=== PATIENT | female | born 1970 | race Hispanic/Latino ===

== ENCOUNTER → 2018-03-22 08:51 | Outpatient (CLI) | payer OTHER, MEDICAID, SELFPAY ==
--- NOTE | 2018-03-22 | DI.CT.S_ITS ---
PROCEDURE: CT ABDOMEN PELVIS W CON INDICATIONS: 47 year-old female with right pelvic mass, with unsuccessful CT guided biopsy September 2017. TECHNIQUE: After the administration of oral and intravenous contrast, 5 mm thick sections acquired from the diaphragms to the symphysis. 5 mm thick coronal and sagittal reformats were performed. For radiation dose reduction, the following was used: automated exposure control, adjustment of mA and/or kV according to patient size. COMPARISON: [facility], CT, CT BIOPSY ABDOMEN OR RETROPERITONEAL, 10/07/2017, 8:41. [facility], CT, ABDOMEN/PELVIS WITH CONTRAST, 02/25/2017, 10:33. [facility], CT, CT ABD PELVIS W CON, 08/05/2015, 23:52. FINDINGS: Image quality: Excellent. ABDOMEN: Lung bases: Lung bases are clear. Heart size is normal. Solid organs: Liver is normal in size, with diffuse fatty infiltration. Gallbladder wall thickness is normal. Biliary system is non-dilated. Pancreas enhances normally. Spleen is normal in size and enhancement. No adrenal nodules. Kidneys are normal in size and enhancement, without hydronephrosis. Peritoneum and bowel: On axial image 69, right lower quadrant mesenteric enhancing soft tissue mass currently measures 3.3 x 2.8 x 3.4 cm (3.4 x 3.2 x 3.9 cm on February 25, 2017, and 3.9 x 3.7 x 4.6 cm on August 05, 2015). Stomach, small bowel, and colon loops are normal in caliber and wall thickness. There is sigmoid colon diverticulosis. The appendix appears normal. No free fluid or air. Nodes and vessels: No retroperitoneal or mesenteric adenopathy. Aorta and inferior vena cava are normal in caliber, with scattered aortoiliac atherosclerosis. Miscellaneous: No ventral hernias. PELVIS: Genitourinary: Bladder wall thickness is normal. Uterus and ovaries are normal in size. Miscellaneous: No inguinal hernias or adenopathy. Bones: No suspicious bony lesions. No vertebral body compression fractures. There is significant L4-L5 disc degeneration. IMPRESSION: 1. Indeterminate solid right lower quadrant mesenteric mass has steadily decreased in size since July 2015. As such, continued annual followup pelvic CT imaging may be a feasible management option if surgical resection is not desired. 2. Sigmoid colon diverticulosis. 3. Diffuse fatty infiltration of the liver. Dictated by: Titus Vealzco M.D. on 03/22/2018 at 11:25 Approved by: Titus Velazco M.D. on 03/22/2018 at 11:36
== END ==
PROVIDERS: Visit Provider Physician Assistant
DX: R92.8 Other abnormal and inconclusive findings on diagnostic imaging of breast (principal); K57.30 Diverticulosis of large intestine without perforation or abscess without bleeding; K76.0 Fatty (change of) liver, not elsewhere classified
CPT/HCPCS: 74177; Q9967

== ENCOUNTER → 2018-04-27 14:47 | Outpatient (CLI) | payer OTHER, MEDICAID, SELFPAY ==
[2018-04-27 15:53] LABS: Alanine Aminotransferase 141 IU/L (9-52); Albumin Globulin Ratio 1.2 (1.0-2.8); Alkaline Phosphatase 150 U/L (38-126); Aspartate Aminotransferase 166 IU/L (14-36); BUN Creatinine Ratio 11.7 (6-22); Bilirubin Total 1.5 mg/dL (0.2-1.3); Blood Urea Nitrogen 7 mg/dL (7-17); Calcium 10.5 mg/dL (8.4-10.2); Carbon Dioxide 33 mmol/L (22-32); Chloride 91 mmol/L (98-107); Estimated Glomerular Filt Rate > 60.0 mL/min (>60); Globulin 4.2 g/dL (1.7-4.1); Glucose 140 mg/dL (70-100); HEMOLYSIS < 15 (0-50); Potassium 3.3 mmol/L (3.4-5.1); Sodium 138 mmol/L (137-145); Total Protein 9.2 g/dL (6.3-8.2)
[2018-04-27 15:54] LABS: Add Manual Diff / Slide Review NO; Basophils Percent Auto 0.3 % (0-2); Eosinophils Percent Auto 0.1 % (2-4); Hematocrit 38.7 % (36-46); Hemoglobin 13.6 g/dL (12.0-16.0); Lymphocytes Percent Auto 19.2 % (25-40); Mean Corpuscular Hemoglobin 32.7 PG (26-34); Mean Corpuscular Volume 93.2 fL (80-100); Monocytes Percent Auto 9.3 % (3-14); Neutrophils Absolute Auto 4400 /uL (3000-5900); Neutrophils Percent Auto 71.1 % (50-75); Platelet Count 288 X10^3/uL (150-400); Red Blood Cell Count 4.15 X10^6/uL (4.0-5.2); Red Cell Distribution Width 13.5 % (11.6-14.8); White Blood Cell Count 6.2 X10^3/uL (4.5-11.0)
== END ==
PROVIDERS: PCP Physician Assistant; Visit Provider Surgery
DX: R11.10 Vomiting, unspecified (principal)
CPT/HCPCS: 36415; 80053; 85025

== ENCOUNTER 2018-04-28 11:20 | Day surgery (SDC) | payer OTHER, MEDICAID, SELFPAY ==
[2018-04-26 11:49] VITALS: BMI 31.1
[2018-04-28] VITALS (7 sets, daily range): BP systolic 130–141; BP diastolic 80–96; PULSE 90–105; RESP 14–20; TEMP 36.2–36.6; O2SAT 92–100; BMI 31.1
--- NOTE | 2018-04-28 | PATH_ITS ---
[facility] Accession Number: [id number] . 01 Material submitted: . ABDOMINAL WALL MASS . 02 Diagnosis: Mass From Abdominal Wall: Benign leiomyoma, negative for atypia (3.9 x 3.6 x 2.0 cm). Mass appears to be totally excised. MRV/04/30/2018 . 02 Electronically signed: . Germain Barnes MD, Pathologist NPI- [id number] . 01 Gross description: . Received in formalin, labeled abdominal wall mass, is a rahman-white solid firm mass (3.9 x 3.6 x 2.0 cm) partially covered in adipose tissue. The cut surface is white, whorled and homogeneous. The tissue is inked black. Claims Auditor serial sections submitted in cassettes A1-A3. ([id number]) /MRV . 02 Pathologist provided ICD-10: D21.4 . 02 CPT . 217921 Performed at: 01 [facility] [address], [place], [place] [id number] MD Wilfred Jones MD Phone: [phone] Performed at: 02 [facility] [address] [place], [place] [id number] MD Rivas Layton MD Phone: [phone]
[2018-04-28] MEDS: LACTATED RINGERS 1,000 ML 42 ML IV (15:31)
[2018-04-28] MEDS: CEFAZOLIN 2 GM/100 ML FROZ.PIGGY IV (15:40)
--- NOTE | 2018-04-28 16:02 | SUR.OPER ---
Supine on padded OR bed, head on pillow, left arm padded and tucked at side, right arm padded and secured on arm board, legs uncrossed, safety belt at thigh, tape over blanket over lower legs .
[2018-04-28] MEDS: LIDOCAINE 1% W/EPI INJ 20 ML INJ (16:13)
[2018-04-28] MEDS: BUPIVACAINE 0.5% (PF) VIAL 30 ML INJ (16:14)
[2018-04-28] MEDS: fentaNYL 100 MCG/2 ML INJ 50 MCG IV ×2 (17:05→17:20)
--- NOTE | 2018-05-12 12:41 | PM.OP.1 ---
Operative Date/Time/Diagnoses Date of procedure: 04/28/18 Time of procedure: 14:41 Pre-op diagnosis: Pelvic mass Post-op diagnosis: same Procedure & Clinicians Procedure: Diagnostic laparoscopy and removal of abdominal wall mass. Same procedure as scheduled: Yes Indications: Painful right lower quadrant pelvic mass present for many years and now growing and limiting mobility Surgeon: Bharti Frausto Invoicing Machine Operator: Jackson Yancey Click Yes if Unassisted: No Anesthesia Type: General Operative Notes Findings: Solid 4 x 4 cm mass within the substance of the oblique muscles of the right lower quadrant. The mass was entirely outside of the peritoneal cavity Closure Type: primary Specimen(s): other (Mass in formalin to pathology) Estimated Blood Loss (mL): 20 Procedure in detail: After obtaining informed consent, the patient brought to the operating room and placed in the supine position on the operating table. Following successful induction of general endotracheal anesthesia, appropriate padding of all bony prominences, and placement of appropriate monitors, the abdomen was prepped and draped in the standard surgical fashion. A time-out was held per [facility] protocol. We began by infiltrating a mixture of local anesthetic just inferior to the umbilicus. An incision was created here and carried down through the skin and subcutaneous tissue to reveal the fascia below. Two 0 Vicryl retention sutures were placed on either side of the midline and the abdomen was entered under direct vision using a 15 blade scalpel. A 10 mm blunt Covarrubias balloon trocar was placed in the abdominal cavity was insufflated to 15 mm of mercury pressure. A 2nd 5 mm trocar was placed in the right upper quadrant with the same technique. The patient was placed in Trendelenburg position with the left side rotated toward the floor. We visualized the entire pelvic region and noted a mass outside the peritoneal cavity that was visible on the right side. There is no similar mass or structure on the left. No other abnormalities were appreciated on either side in the pelvis. The mass was palpated externally and we could determine at this point that it was more accessible from an anterior approach. The camera was removed and the abdomen was desufflated. An incision was created directly over the mass in the right lower quadrant. This was carried down through skin and subcutaneous tissue. The mass itself was covered by oblique muscle. The oblique muscles were gently retracted superiorly and inferiorly to reveal the mass. The mass was then delivered into the field and a small neurovascular pedicle divided with cautery. It was 4 x 4 cm in greatest dimension and whitish and firm and calcified in appearance. The remaining defect was then irrigated with warm saline solution and aspirated free of all fluid. It was closed in 3 layers with Vicryl and Monocryl suture. Made a 2nd look into the abdominal cavity to be sure that the right lower quadrant wound was well approximated. The peritoneum was disrupted but the wound was well closed. No bleeding was noted. The trocars removed under direct vision and the abdomen desufflated. Trocar sites were closed in 2 layers with Vicryl and Monocryl suture. All sponge, needle, and instrument counts were correct at the conclusion of the case. The patient tolerated the procedure very well. She was allowed awaken from anesthesia without difficulty and taken to the postanesthesia care unit in good condition. Complications: none Condition: stable Disposition: PACU Plan for aftercare: 1. Discharge to home 2. Follow up with me in my office in 2 weeks
== END 2018-04-28 17:50 | disposition home or self-care (01) ==
PROVIDERS: PCP Physician Assistant; Visit Provider Surgery
PROC: (CPT 49320; principal; 2018-04-28 16:00)
DX: D21.4 Benign neoplasm of connective and other soft tissue of abdomen (principal); I10 Essential (primary) hypertension
CPT/HCPCS: 49320; 22901; 49329; 88305; J0330; J0690; J1100; J1170; J2405; J2704; J3010

== ENCOUNTER → 2018-09-08 14:30 | Outpatient (REF) | payer OTHER, MEDICAID, SELFPAY ==
[2018-09-08 14:36] LABS: Appearance Urine UA SL CLOUDY; Bilirubin Urine UA NEGATIVE (NEGATIVE); Color Urine UA YELLOW; Glucose Urine UA NEGATIVE (Normal); Ketones Urine UA NEGATIVE (NEGATIVE); Leukocyte Esterase Urine UA 2+ (NEGATIVE); Nitrite Urine UA NEGATIVE (Negative); Occult Blood Urine UA 1+ (Negative); Protein Urine UA NEGATIVE (Negative); Urobilinogen Urine UA 0.2 E.U./dL (0.2)
[2018-09-08 14:44] LABS: Bacteria Urine Many (>30); Culture Indicated Urine Specimen Cultured; RBC Urine 30-100/HPF (0-5/HPF); Squamous Epithelial Cell Urine 1-5 /HPF; WBC Urine 1-5/HPF (0-5/HPF)
== END ==
LOC: LAB 14:30
PROVIDERS: PCP Physician Assistant; Visit Provider Physician Assistant
DX: N39.0 Urinary tract infection, site not specified (principal)
CPT/HCPCS: 81001; 87077; 87086; 87186

== ENCOUNTER 2019-04-25 13:10 | Emergency (ER) | payer OTHER, MEDICAID, SELFPAY ==
[2019-04-25] VITALS (9 sets, daily range): BP systolic 100–126; BP diastolic 56–80; PULSE 115–121; RESP 18–24; TEMP 37–38.1; O2SAT 95–99
--- NOTE | 2019-04-25 13:38 | DI.CT.S_ITS ---
PROCEDURE: CT CHEST ABD PEL W CON INDICATIONS: trauma, fall, new jaundice, heavy etoh TECHNIQUE: After the administration of intravenous contrast, 5 mm thick sections acquired from the lung apices to the symphysis. 2.5 mm thick coronal and sagittal reformats were acquired. Additional 7 mm thick coronal maximum intensity projection (MIP) reformats acquired through the lungs. Optional 10-minute delayed imaging may be performed from the kidneys to the bladder. For radiation dose reduction, the following was used: automated exposure control, adjustment of mA and/or kV according to patient size. COMPARISON: [facility], CT, ABDOMEN/PELVIS WITH CONTRAST, 02/25/2017, 10:33. [facility], CT, CT ABDOMEN PELVIS W CON, 03/22/2018, 10:06. FINDINGS: Image quality: Excellent. CHEST: Lungs: No pulmonary contusions or lacerations. There is mild dependent atelectasis bilaterally. No pneumothorax or hemothorax. Central and peripheral airways appear patent and normal in caliber. Mediastinum: No mediastinal hematomas. Heart size is normal. No pericardial effusion. Thoracic aorta and pulmonary arteries demonstrate normal size and enhancement. No mediastinal or hilar adenopathy. Esophagus is normal in caliber. No hiatal hernia. Chest wall: No rib fractures. No subcutaneous emphysema. No axillary or supraclavicular adenopathy. In the ABDOMEN: Solid organs: The liver is markedly enlarged, increased in size compared to the prior study. There is heterogeneous hypoattenuation of the hepatic parenchyma with increased heterogeneity compared to the prior study. Within segment 4B of the inferior left hepatic lobe, there are 2 indistinct hypoattenuating lesions measuring approximately 2.2 x 1.5 cm and 4.5 x 3.8 cm along the gallbladder fossa. The gallbladder is partially distended with mild wall thickening and enhancement. There is a punctate calcified stone within the gallbladder lumen. Biliary system is non-dilated. Pancreas enhances normally, without transection. No pancreatic duct dilatation. Spleen is normal in size and enhancement, without definite lacerations. There is a small linear cleft along the posterior aspect of the spleen which appears similar to the prior study. No adrenal hematomas. Both kidneys enhance normally, without hydronephrosis or lacerations. Peritoneum and bowel: Small bowel loops demonstrate normal wall thickness and caliber. There are surgical sutures along the cecum likely from prior appendectomy. There is mild segmental wall thickening of the ascending colon as well as the sigmoid colon. The findings represent a nonspecific infectious or inflammatory colitis or portal colopathy. Colonic diverticulosis is demonstrated without acute diverticulitis. There is a small to moderate amount of free fluid in the abdomen or pelvis likely representing ascites. Nodes and vessels: No retroperitoneal or mesenteric adenopathy. Aorta and inferior vena cava are normal in size and enhancement. Miscellaneous: No ventral hernias. PELVIS: Genitourinary: Bladder wall thickness is normal. Miscellaneous: No inguinal hernias or adenopathy. Bones: Pelvic ring and hip joints appear intact. No vertebral compression fractures. IMPRESSION: 1. Interval enlargement of the liver with diffuse heterogeneous hypoattenuation. Given reported history of new jaundice, the findings may reflect an acute hepatitis. 2. New hypoattenuating lesions along the gallbladder fossa. Although this may represent focal fatty infiltration or a transient vascular perfusion anomaly, a hepatic mass cannot be excluded. Recommend further evaluation with a liver protocol MRI or CT when clinically feasible. 3. Small to moderate amount of ascites. 4. Partial distention of the gallbladder with mild wall thickening and enhancement and a small calcified gallstone. The findings are nonspecific in the context of liver disease, but if there is clinical suspicion for cholecystitis recommend further evaluation with ultrasound. 5. Mild segmental wall thickening in the ascending and sigmoid colon may reflect portal colopathy versus an infectious or inflammatory colitis. 6. Colonic diverticulosis without acute diverticulitis. Dictated by: Wilfred Robles M.D. on 04/25/2019 at 14:37 Approved by: Wilfred Robles M.D. on 04/25/2019 at 15:22
[2019-04-25 13:52] LABS: Hematocrit 24.3 % (36-46); INR 1.9 (0.9-1.3); Mean Corpuscular HGB Conc 32.9 % (30-36); Mean Corpuscular Hemoglobin 31.3 PG (26-34); Mean Corpuscular Volume 95.1 fL (80-100); Platelet Count 323 X10^3/uL (150-400); Prothrombin Time 22.5 SECONDS (10.1-12.7); Red Blood Cell Count 2.56 X10^6/uL (4.0-5.2); Red Cell Distribution Width 22.1 % (11.6-14.8); White Blood Cell Count 19.5 X10^3/uL (4.5-11.0)
[2019-04-25 13:54] LABS: Add Manual Diff / Slide Review YES
[2019-04-25 13:56] LABS: Acetaminophen < 10 ug/mL (10-30); Ethanol (ETOH) < 10 mg/dL
[2019-04-25 13:57] LABS: Alanine Aminotransferase 33 IU/L (9-52); Albumin Globulin Ratio 0.6 (1.0-2.8); Alkaline Phosphatase 547 U/L (38-126); Aspartate Aminotransferase 220 IU/L (14-36); Blood Urea Nitrogen 13 mg/dL (7-17); Calcium 7.9 mg/dL (8.4-10.2); Carbon Dioxide 25 mmol/L (22-32); Chloride 94 mmol/L (98-107); Estimated Glomerular Filt Rate > 60.0 mL/min (>60); Globulin 5.2 g/dL (1.7-4.1); Glucose 100 mg/dL (70-100); HEMOLYSIS < 15 (0-50); Magnesium 1.6 mg/dL (1.6-2.3); Potassium 3.3 mmol/L (3.4-5.1); Sodium 131 mmol/L (137-145); Total Protein 8.2 g/dL (6.3-8.2)
--- NOTE | 2019-04-25 13:58 | ED.FALL ---
HPI - Fall General Chief Complaint: Fall Stated Complaint: Fall, rib pain and abd pain Time Seen by Provider: 04/25/19 13:12 History of Present Illness HPI Narrative: 48-year-old female nonsmoker with extensive alcohol history including up to 1 pt daily for many years presents with multiple falls over the past week including generalized fatigue and weakness. She has had worsening jaundice for the past few months and states that her abdomen has become intensely swollen over the past few days. She does not carry any known diagnosis of cirrhosis or liver failure. She denies fever chills. She denies any sort of confusion. She denies the use of Tylenol or other pain medications. She denies any change in her bowel habits other than perhaps some mild constipation. She denies any head neck or back pain resulting from fall. MD complaint: fall Onset (ago): day(s) Fall from: standing Fall witnessed: no Place fall occurred: home Loss of consciousness: none Prolonged down time: no Symptoms prior to fall: none Context: tripped/slipped Associated symptoms (after fall): shortness of breath, abdominal pain and lightheaded Related Data Home Medications Medication Instructions Recorded Confirmed amlodipine [Norvasc] 5 mg PO DAILY #0 02/26/17 04/25/19 omeprazole 20 mg PO DAILY #0 02/26/17 04/25/19 hydrochlorothiazide 25 mg PO DAILY 04/12/18 04/25/19 lorazepam 0.5 mg PO DAILY PRN 04/25/19 04/25/19 potassium chloride 10 meq PO DAILY 04/25/19 04/25/19 Allergies Allergy/AdvReac Type Severity Reaction Status Date / Time acetaminophen [From Vicodin] AdvReac Mild itching Verified 05/11/18 11:38 codeine AdvReac Mild itching Verified 05/11/18 11:38 hydrocodone [From Vicodin] AdvReac Mild itching Verified 05/11/18 11:38 oxycodone [From Percocet] AdvReac Mild itching Verified 05/11/18 11:38 Review of Systems Review of Systems ROS Unobtainable: All systems reviewed & are unremarkable except as noted in HPI and below Constitutional Denies chills, Reports difficulty sleeping, Denies fever(s), Denies lethargy, Reports poor appetite and Reports weakness Eyes Denies change in vision, Denies eye discharge, Denies irritation and Denies loss of vision ENT Ears, Nose, Mouth, and Throat: Denies change in voice, Denies neck pain and Denies sore throat Cardiovascular Denies chest pain, Denies irregular heart rhythm, Denies lightheadedness, Denies palpitations, Denies dyspnea, Denies dyspnea on exertion and Denies orthopnea Respiratory Denies cough, Denies dyspnea, Denies dyspnea on exertion and Denies wheezing Gastrointestinal Gastrointestinal: Denies abdominal pain, Denies change in bowel habits, Denies diarrhea, Denies nausea and Denies vomiting Genitourinary Denies hematuria, Denies flank pain, Denies urinary incontinence and Denies urinary urgency Musculoskeletal Denies neck pain Integumentary/Breasts Denies pruritus, Denies erythema, Denies rash and Denies wounds Comments: jaundice Neurologic Denies confusion, Denies loss of vision and Reports weakness Psychiatric Denies anxiety, Denies confusion, Denies depression, Denies homicidal ideation and Denies suicidal ideation Endocrine Denies palpitations Hematologic/Lymphatic Denies easy bruising Allergic/Immunologic Denies wheezing Exam Narrative Exam Narrative: GENERAL: 48-year-old female is obviously quite ill, scleral icterus and jaundice which is apparently new per the patient HEAD: Atraumatic. Normocephalic. No temporal or scalp tenderness. EYES: Pupils equal round and reactive. Extraocular motions intact. Scleral icterus ENT: Nose without bleeding, purulent drainage or septal hematoma. Throat without erythema, tonsillar hypertrophy or exudate. Uvula midline. Airway patent. NECK: Trachea midline. No JVD or lymphadenopathy. Supple, nontender, no meningeal signs. CARDIOVASCULAR: Regular rate and rhythm without murmurs, gallops, or rubs. RESPIRATORY: Clear to auscultation. Breath sounds equal bilaterally. No wheezes, rales, or rhonchi. GASTROINTESTINAL: Large protuberant abdomen with fluid wave, not tense no warmth EXTREMITIES: No clubbing, cyanosis, or edema. No joint tenderness, effusion, or edema noted. BACK: Nontender without deformity or crepitance. No flank tenderness. NEURO: AOx3. SKIN: Jaundice Initial Vital Signs Initial Vital Signs: Vital Signs Pulse Rate 118 H 04/25/19 13:14 Blood Pressure 126/80 04/25/19 13:14 Pulse Oximetry 98 04/25/19 13:14 [facility] Medical History Anxiety (Acute) Diverticulosis (Acute) Epistaxis (Acute) Fatty liver (Acute) H/O wisdom tooth extraction (Acute) History of abnormal cervical Pap smear (Acute) Pelvic mass (Acute) RLQ abdominal pain (Acute) HTN (hypertension) (Chronic) Surgical History History of reduction mammoplasty (Acute) History of tubal ligation (Acute) H/O tubal ligation (Resolved) Family History Sister Hypertension Father Diabetes mellitus Grandfather Diabetes mellitus Grandmother Stroke Social History household members: significant other Smoking Status: Never smoker alcohol intake: current Family History Sister Hypertension Father Diabetes mellitus Grandfather Diabetes mellitus Grandmother Stroke Social History household members: significant other Smoking Status: Never smoker alcohol intake: current Course Orders Ordered: ED Orders 04/25/19 13:25 Acetaminophen Stat Complete Blood Count AUTO DIFF Stat Comprehensive Metabolic Panel Stat Ethanol (ETOH) Stat Magnesium Stat Prothrombin Time INR Stat 04/25/19 13:38 CT chest abd pel w con Stat 04/25/19 13:45 ABO RH Type Stat Ammonia (NH3) Stat Fresh Frozen Plasma Stat Lactate (Lactic Acid) Stat 04/25/19 14:00 Blood Culture Stat Hepatitis Acute Panel Stat 04/25/19 14:28 Albumin Body Fluid Stat Body Fluid Culture Stat Cell Count w Diff Body Fluid Stat Glucose Body Fluid Stat LDH Body Fluid Stat Total Protein Body Fluid Stat 04/25/19 16:05 Urinalysis and Microscopic Stat Discontinued Medications Hydromorphone HCl (Dilaudid) 0.5 mg IV NOW ONE Stop: 04/25/19 15:13 Last Admin: 04/25/19 15:46 Dose: 0.5 mg Hydromorphone HCl (Dilaudid) 0.5 mg IV NOW ONE Stop: 04/25/19 18:12 Last Admin: 04/25/19 18:13 Dose: 0.5 mg Ceftriaxone Sodium/Dextrose (Rocephin) 2 gm in 50 mls @ 100 mls/hr IV NOW ONE Stop: 04/25/19 15:11 Last Infusion: 04/25/19 15:54 Dose: 0 mls/hr Admin: 04/25/19 14:53 Dose: 100 mls/hr Consultations Consultation #1: discussed CT with General Surgery. Little concern over GB findings. Call to hospitalist. Cannot keep here given lack of GI Discussed paracentesis with radiology, not enough fluid on CT, cannot do with INR of 1.9. ABX ordered Call to [place]. No beds Call to [facility] hospitalist. Happy to accept Vital Signs - 8 hr 04/25/19 13:14 04/25/19 13:28 04/25/19 13:30 Temperature 98.6 F Pulse Rate 118 H 118 H 116 H Respiratory Rate 24 19 Blood Pressure 126/80 Blood Pressure [Left Arm] 126/80 113/78 Pulse Oximetry 98 98 99 04/25/19 14:00 04/25/19 15:33 04/25/19 15:59 Temperature 100.5 F H 100.0 F H Pulse Rate 115 H 120 H 121 H Respiratory Rate 19 22 22 Blood Pressure 103/56 L 113/72 Blood Pressure [Left Arm] 100/66 Pulse Oximetry 95 04/25/19 16:35 04/25/19 17:20 04/25/19 18:44 Temperature Pulse Rate 120 H 116 H 118 H Respiratory Rate 20 18 20 Blood Pressure Blood Pressure [Left Arm] 110/71 113/77 103/65 Pulse Oximetry 96 97 95 MDM - Fall Lab Data Result diagrams: 04/25/19 13:25 04/25/19 13:25 Lab Results 04/25/19 04/25/19 04/25/19 Range/Units 13:25 13:25 13:25 WBC 19.5 H (4.5-11.0) X10^3/uL RBC 2.56 L (4.0-5.2) X10^6/uL Hgb 8.0 L (12.0-16.0) g/dL Hct 24.3 L (36-46) % MCV 95.1 (80-100) fL MCH 31.3 (26-34) PG MCHC 32.9 (30-36) % RDW 22.1 H (11.6-14.8) % Plt Count 323 (150-400) X10^3/uL Neut % (Auto) Not Reportable Lymph % (Auto) Not Reportable [place] % (Auto) Not Reportable Eos % (Auto) Not Reportable Baso % (Auto) Not Reportable Lymph # (Auto) Not Reportable [place] # (Auto) Not Reportable Baso # (Auto) Not Reportable Total Counted 100 Seg Neutrophils % 78.0 H (38-70) % Band Neutrophils % 9.0 H (3-7) % Lymphocytes % (Manual) 8.0 L (25-45) % Monocytes % (Manual) 5.0 (2-11) % Neutrophils # (Manual) 30657 H (7741-1212) /uL Nucleated RBCs 1 H ( - 0) #/Diff RBC Morphology See below Polychromasia 2+ H Hypochromasia 2+ H Anisocytosis 2+ H Target Cells 2+ H PT 22.5 H (10.1-12.7) SECONDS INR 1.9 H (0.9-1.3) Sodium (137-145) mmol/L Potassium (3.4-5.1) mmol/L Chloride (98-107) mmol/L Carbon Dioxide (22-32) mmol/L BUN (7-17) mg/dL Creatinine (0.52-1.04) mg/dL Estimated GFR (>60) mL/min BUN/Creatinine Ratio (6-22) Glucose (70-100) mg/dL Lactate (0.7-2.1) mmol/L Calcium (8.4-10.2) mg/dL Magnesium (1.6-2.3) mg/dL Total Bilirubin (0.2-1.3) mg/dL AST (14-36) IU/L ALT (9-52) IU/L Alkaline Phosphatase (38-126) U/L Ammonia (9-30) umol/L Total Protein (6.3-8.2) g/dL Albumin (3.5-5.0) g/dL Globulin (1.7-4.1) g/dL Albumin/Globulin Ratio (1.0-2.8) Urine Color Urine Appearance Urine pH (4.5-8.0) Ur Specific [place] (1.000-1.035) Urine Protein (Negative) Urine Glucose (UA) (Negative) g/dL Urine Ketones (NEGATIVE) Urine Occult Blood (Negative) Urine Nitrate (Negative) Urine Bilirubin (NEGATIVE) Urine Urobilinogen (0.2) E.U./dL Ur Leukocyte Esterase (NEGATIVE) Urine RBC (0-5/HPF) Urine WBC (0-5/HPF) Ur Squamous Epith Cells (0-5/HPF) Urine Bacteria (None) Ur Culture Indicated? Acetaminophen < 10 L (10-30) ug/mL Ethyl Alcohol < 10 mg/dL Blood Type 04/25/19 04/25/19 04/25/19 Range/Units 13:25 13:45 13:45 WBC (4.5-11.0) X10^3/uL RBC (4.0-5.2) X10^6/uL Hgb (12.0-16.0) g/dL Hct (36-46) % MCV (80-100) fL MCH (26-34) PG MCHC (30-36) % RDW (11.6-14.8) % Plt Count (150-400) X10^3/uL Neut % (Auto) Lymph % (Auto) [place] % (Auto) Eos % (Auto) Baso % (Auto) Lymph # (Auto) [place] # (Auto) Baso # (Auto) Total Counted Seg Neutrophils % (38-70) % Band Neutrophils % (3-7) % Lymphocytes % (Manual) (25-45) % Monocytes % (Manual) (2-11) % Neutrophils # (Manual) (0445-2568) /uL Nucleated RBCs ( - 0) #/Diff RBC Morphology Polychromasia Hypochromasia Anisocytosis Target Cells PT (10.1-12.7) SECONDS INR (0.9-1.3) Sodium 131 L (137-145) mmol/L Potassium 3.3 L (3.4-5.1) mmol/L Chloride 94 L (98-107) mmol/L Carbon Dioxide 25 (22-32) mmol/L BUN 13 (7-17) mg/dL Creatinine 0.50 L (0.52-1.04) mg/dL Estimated GFR > 60.0 (>60) mL/min BUN/Creatinine Ratio 26.0 H (6-22) Glucose 100 (70-100) mg/dL Lactate 1.9 (0.7-2.1) mmol/L Calcium 7.9 L (8.4-10.2) mg/dL Magnesium 1.6 (1.6-2.3) mg/dL Total Bilirubin 11.0 H (0.2-1.3) mg/dL AST 220 H (14-36) IU/L ALT 33 (9-52) IU/L Alkaline Phosphatase 547 H (38-126) U/L Ammonia 26.0 (9-30) umol/L Total Protein 8.2 (6.3-8.2) g/dL Albumin 3.0 L (3.5-5.0) g/dL Globulin 5.2 H (1.7-4.1) g/dL Albumin/Globulin Ratio 0.6 L (1.0-2.8) Urine Color Urine Appearance Urine pH (4.5-8.0) Ur Specific [place] (1.000-1.035) Urine Protein (Negative) Urine Glucose (UA) (Negative) g/dL Urine Ketones (NEGATIVE) Urine Occult Blood (Negative) Urine Nitrate (Negative) Urine Bilirubin (NEGATIVE) Urine Urobilinogen (0.2) E.U./dL Ur Leukocyte Esterase (NEGATIVE) Urine RBC (0-5/HPF) Urine WBC (0-5/HPF) Ur Squamous Epith Cells (0-5/HPF) Urine Bacteria (None) Ur Culture Indicated? Acetaminophen (10-30) ug/mL Ethyl Alcohol mg/dL Blood Type 04/25/19 04/25/19 Range/Units 13:45 16:05 WBC (4.5-11.0) X10^3/uL RBC (4.0-5.2) X10^6/uL Hgb (12.0-16.0) g/dL Hct (36-46) % MCV (80-100) fL MCH (26-34) PG MCHC (30-36) % RDW (11.6-14.8) % Plt Count (150-400) X10^3/uL Neut % (Auto) Lymph % (Auto) [place] % (Auto) Eos % (Auto) Baso % (Auto) Lymph # (Auto) [place] # (Auto) Baso # (Auto) Total Counted Seg Neutrophils % (38-70) % Band Neutrophils % (3-7) % Lymphocytes % (Manual) (25-45) % Monocytes % (Manual) (2-11) % Neutrophils # (Manual) (2446-0083) /uL Nucleated RBCs ( - 0) #/Diff RBC Morphology Polychromasia Hypochromasia Anisocytosis Target Cells PT (10.1-12.7) SECONDS INR (0.9-1.3) Sodium (137-145) mmol/L Potassium (3.4-5.1) mmol/L Chloride (98-107) mmol/L Carbon Dioxide (22-32) mmol/L BUN (7-17) mg/dL Creatinine (0.52-1.04) mg/dL Estimated GFR (>60) mL/min BUN/Creatinine Ratio (6-22) Glucose (70-100) mg/dL Lactate (0.7-2.1) mmol/L Calcium (8.4-10.2) mg/dL Magnesium (1.6-2.3) mg/dL Total Bilirubin (0.2-1.3) mg/dL AST (14-36) IU/L ALT (9-52) IU/L Alkaline Phosphatase (38-126) U/L Ammonia (9-30) umol/L Total Protein (6.3-8.2) g/dL Albumin (3.5-5.0) g/dL Globulin (1.7-4.1) g/dL Albumin/Globulin Ratio (1.0-2.8) Urine Color [place] Urine Appearance Clear Urine pH 7.5 (4.5-8.0) Ur Specific [place] <=1.005 (1.000-1.035) Urine Protein 1+ H (Negative) Urine Glucose (UA) Trace H (Negative) g/dL Urine Ketones Trace H (NEGATIVE) Urine Occult Blood Negative (Negative) Urine Nitrate Negative (Negative) Urine Bilirubin 3+ H (NEGATIVE) Urine Urobilinogen 2.0 H (0.2) E.U./dL Ur Leukocyte Esterase Trace H (NEGATIVE) Urine RBC None seen (0-5/HPF) Urine WBC 5-10/hpf H (0-5/HPF) Ur Squamous Epith Cells 5-10 /hpf H (0-5/HPF) Urine Bacteria Many (>30) H (None) Ur Culture Indicated? Cult not indicated Acetaminophen (10-30) ug/mL Ethyl Alcohol mg/dL Blood Type O Positive Imaging Data CT scan - abdomen: Radiologist's impression: [address] [address] [address] Scan Report Signed Patient: Conchita Miguel#: [id number] : 1970Acct:[id number] Age/Sex: 48 / FDate of Service: 04/25/19 Loc: ED Accession Number: [id number] Procedure: CT chest abd pel w con Ordering Provider: Ravinder Nevarez D.O. PROCEDURE: CT CHEST ABD PEL W CON INDICATIONS: trauma, fall, new jaundice, heavy etoh TECHNIQUE: After the administration of intravenous contrast, 5 mm thick sections acquired from the lung apices to the symphysis. 2.5 mm thick coronal and sagittal reformats were acquired. Additional 7 mm thick coronal maximum intensity projection (MIP) reformats acquired through the lungs. Optional 10-minute delayed imaging may be performed from the kidneys to the bladder. For radiation dose reduction, the following was used: automated exposure control, adjustment of mA and/or kV according to patient size. COMPARISON: [facility], CT, ABDOMEN/PELVIS WITH CONTRAST, 02/25/2017, 10:33. [facility], CT, CT ABDOMEN PELVIS W CON, 03/22/2018, 10:06. FINDINGS: Image quality: Excellent. CHEST: Lungs: No pulmonary contusions or lacerations. There is mild dependent atelectasis bilaterally. No pneumothorax or hemothorax. Central and peripheral airways appear patent and normal in caliber. Mediastinum: No mediastinal hematomas. Heart size is normal. No pericardial effusion. Thoracic aorta and pulmonary arteries demonstrate normal size and enhancement. No mediastinal or hilar adenopathy. Esophagus is normal in caliber. No hiatal hernia. Chest wall: No rib fractures. No subcutaneous emphysema. No axillary or supraclavicular adenopathy. In the ABDOMEN: Solid organs: The liver is markedly enlarged, increased in size compared to the prior study. There is heterogeneous hypoattenuation of the hepatic parenchyma with increased heterogeneity compared to the prior study. Within segment 4B of the inferior left hepatic lobe, there are 2 indistinct hypoattenuating lesions measuring approximately 2.2 x 1.5 cm and 4.5 x 3.8 cm along the gallbladder fossa. The gallbladder is partially distended with mild wall thickening and enhancement. There is a punctate calcified stone within the gallbladder lumen. Biliary system is non-dilated. Pancreas enhances normally, without transection. No pancreatic duct dilatation. Spleen is normal in size and enhancement, without definite lacerations. There is a small linear cleft along the posterior aspect of the spleen which appears similar to the prior study. No adrenal hematomas. Both kidneys enhance normally, without hydronephrosis or lacerations. Peritoneum and bowel: Small bowel loops demonstrate normal wall thickness and caliber. There are surgical sutures along the cecum likely from prior appendectomy. There is mild segmental wall thickening of the ascending colon as well as the sigmoid colon. The findings represent a nonspecific infectious or inflammatory colitis or portal colopathy. Colonic diverticulosis is demonstrated without acute diverticulitis. There is a small to moderate amount of free fluid in the abdomen or pelvis likely representing ascites. Nodes and vessels: No retroperitoneal or mesenteric adenopathy. Aorta and inferior vena cava are normal in size and enhancement. Miscellaneous: No ventral hernias. PELVIS: Genitourinary: Bladder wall thickness is normal. Miscellaneous: No inguinal hernias or adenopathy. Bones: Pelvic ring and hip joints appear intact. No vertebral compression fractures. IMPRESSION: 1. Interval enlargement of the liver with diffuse heterogeneous hypoattenuation. Given reported history of new jaundice, the findings may reflect an acute hepatitis. 2. New hypoattenuating lesions along the gallbladder fossa. Although this may represent focal fatty infiltration or a transient vascular perfusion anomaly, a hepatic mass cannot be excluded. Recommend further evaluation with a liver protocol MRI or CT when clinically feasible. 3. Small to moderate amount of ascites. 4. Partial distention of the gallbladder with mild wall thickening and enhancement and a small calcified gallstone. The findings are nonspecific in the context of liver disease, but if there is clinical suspicion for cholecystitis recommend further evaluation with ultrasound. 5. Mild segmental wall thickening in the ascending and sigmoid colon may reflect portal colopathy versus an infectious or inflammatory colitis. 6. Colonic diverticulosis without acute diverticulitis. Dictated by: Wilfred Robles M.D. on 04/25/2019 at 14:37 Approved by: Wilfred Robles M.D. on 04/25/2019 at 15:22 Critical Care Time Critical Care Time: Yes Total Critical Care Time: 30 Attestation: The high probability of a clinically significant, sudden or life threatening deterioration of the [CV] system(s) required my full and direct attention, intervention and personal management. The aggregate critical care time was [35] minutes. This time is in addition to time spent performing reported procedures but includes the following: [x] Data Review and interpretation [x] Patient assessment and monitoring of vital signs [x] Documentation [x] Medication orders and management Discharge Plan Departure Patient Disposition: [facility] Clinical Impression: Acute hepatitis, SBP (spontaneous bacterial peritonitis) Prescriptions: No Action amlodipine [Norvasc] 5 MG tablet 5 mg PO DAILY Qty: 0 RF: 0 omeprazole 20 MG capsule,delayed release(DR/EC) 20 mg PO DAILY Qty: 0 RF: 0 hydrochlorothiazide 25 mg PO DAILY RF: 0 lorazepam 0.5 mg tablet 0.5 mg PO DAILY PRN (Reason: Anxiety) RF: 0 potassium chloride 10 mEq tablet extended release 10 meq PO DAILY RF: 0 Referrals: Rozina Murphy PA-C [Primary Care Provider] -
[2019-04-25 14:08] LABS: Neutrophils Absolute Manual 16965 /uL (3000-5900); Nucleated Red Blood Cells 1 #/Diff; Total Cells Counted 100
[2019-04-25 14:10] LABS: Anisocytosis 2+; Hypochromasia 2+; Polychromasia 2+; Target Cells 2+
[2019-04-25 14:11] LABS: Lactate (Lactic Acid) 1.9 mmol/L (0.7-2.1)
--- NOTE | 2019-04-25 14:42 | ED_ITS ---
HPI - Fall General Chief Complaint: Fall Stated Complaint: Fall, rib pain and abd pain Time Seen by Provider: 04/25/19 13:12 History of Present Illness HPI Narrative: 48-year-old female nonsmoker with extensive alcohol history including up to 1 pt daily for many years presents with multiple falls over the past week including generalized fatigue and weakness. She has had worsening jaundice for the past few months and states that her abdomen has become intensely swollen over the past few days. She does not carry any known diagnosis of cirrhosis or liver failure. She denies fever chills. She denies any sort of confusion. She denies the use of Tylenol or other pain medications. She denies any change in her bowel habits other than perhaps some mild constipation. She denies any head neck or back pain resulting from fall. MD complaint: fall Onset (ago): day(s) Fall from: standing Fall witnessed: no Place fall occurred: home Loss of consciousness: none Prolonged down time: no Symptoms prior to fall: none Context: tripped/slipped Associated symptoms (after fall): shortness of breath, abdominal pain and lightheaded Related Data Home Medications Medication Instructions Recorded Confirmed amlodipine [Norvasc] 5 mg PO DAILY #0 02/26/17 04/25/19 omeprazole 20 mg PO DAILY #0 02/26/17 04/25/19 hydrochlorothiazide 25 mg PO DAILY 04/12/18 04/25/19 lorazepam 0.5 mg PO DAILY PRN 04/25/19 04/25/19 potassium chloride 10 meq PO DAILY 04/25/19 04/25/19 Allergies Allergy/AdvReac Type Severity Reaction Status Date / Time acetaminophen [From Vicodin] AdvReac Mild itching Verified 05/11/18 11:38 codeine AdvReac Mild itching Verified 05/11/18 11:38 hydrocodone [From Vicodin] AdvReac Mild itching Verified 05/11/18 11:38 oxycodone [From Percocet] AdvReac Mild itching Verified 05/11/18 11:38 Review of Systems Review of Systems ROS Unobtainable: All systems reviewed & are unremarkable except as noted in HPI and below Constitutional Denies chills, Reports difficulty sleeping, Denies fever(s), Denies lethargy, Reports poor appetite and Reports weakness Eyes Denies change in vision, Denies eye discharge, Denies irritation and Denies loss of vision ENT Ears, Nose, Mouth, and Throat: Denies change in voice, Denies neck pain and Denies sore throat Cardiovascular Denies chest pain, Denies irregular heart rhythm, Denies lightheadedness, Denies palpitations, Denies dyspnea, Denies dyspnea on exertion and Denies orthopnea Respiratory Denies cough, Denies dyspnea, Denies dyspnea on exertion and Denies wheezing Gastrointestinal Gastrointestinal: Denies abdominal pain, Denies change in bowel habits, Denies diarrhea, Denies nausea and Denies vomiting Genitourinary Denies hematuria, Denies flank pain, Denies urinary incontinence and Denies urinary urgency Musculoskeletal Denies neck pain Integumentary/Breasts Denies pruritus, Denies erythema, Denies rash and Denies wounds Comments: jaundice Neurologic Denies confusion, Denies loss of vision and Reports weakness Psychiatric Denies anxiety, Denies confusion, Denies depression, Denies homicidal ideation and Denies suicidal ideation Endocrine Denies palpitations Hematologic/Lymphatic Denies easy bruising Allergic/Immunologic Denies wheezing Exam Narrative Exam Narrative: GENERAL: 48-year-old female is obviously quite ill, scleral icterus and jaundice which is apparently new per the patient HEAD: Atraumatic. Normocephalic. No temporal or scalp tenderness. EYES: Pupils equal round and reactive. Extraocular motions intact. Scleral icterus ENT: Nose without bleeding, purulent drainage or septal hematoma. Throat without erythema, tonsillar hypertrophy or exudate. Uvula midline. Airway patent. NECK: Trachea midline. No JVD or lymphadenopathy. Supple, nontender, no meninge al signs. CARDIOVASCULAR: Regular rate and rhythm without murmurs, gallops, or rubs. RESPIRATORY: Clear to auscultation. Breath sounds equal bilaterally. No wheezes, rales, or rhonchi. GASTROINTESTINAL: Large protuberant abdomen with fluid wave, not tense no warmth EXTREMITIES: No clubbing, cyanosis, or edema. No joint tenderness, effusion, or edema noted. BACK: Nontender without deformity or crepitance. No flank tenderness. NEURO: AOx3. SKIN: Jaundice Initial Vital Signs Initial Vital Signs: Vital Signs Pulse Rate 118 H 04/25/19 13:14 Blood Pressure 126/80 04/25/19 13:14 Pulse Oximetry 98 04/25/19 13:14 PFSH Medical History Anxiety (Acute) Diverticulosis (Acute) Epistaxis (Acute) Fatty liver (Acute) H/O wisdom tooth extraction (Acute) History of abnormal cervical Pap smear (Acute) Pelvic mass (Acute) RLQ abdominal pain (Acute) HTN (hypertension) (Chronic) Surgical History History of reduction mammoplasty (Acute) History of tubal ligation (Acute) H/O tubal ligation (Resolved) Family History Sister Hypertension Father Diabetes mellitus Grandfather Diabetes mellitus Grandmother Stroke Social History household members: significant other Smoking Status: Never smoker alcohol intake: current Family History Sister Hypertension Father Diabetes mellitus Grandfather Diabetes mellitus Grandmother Stroke Social History household members: significant other Smoking Status: Never smoker alcohol intake: current Course Orders Ordered: ED Orders 04/25/19 13:25 Acetaminophen Stat Complete Blood Count AUTO DIFF Stat Comprehensive Metabolic Panel Stat Ethanol (ETOH) Stat Magnesium Stat Prothrombin Time INR Stat 04/25/19 13:38 CT chest abd pel w con Stat 04/25/19 13:45 ABO RH Type Stat Ammonia (NH3) Stat Fresh Frozen Plasma Stat Lactate (Lactic Acid) Stat 04/25/19 14:00 Blood Culture Stat Hepatitis Acute Panel Stat 04/25/19 14:28 Albumin Body Fluid Stat Body Fluid Culture Stat Cell Count w Diff Body Fluid Stat Glucose Body Fluid Stat LDH Body Fluid Stat Total Protein Body Fluid Stat 04/25/19 16:05 Urinalysis and Microscopic Stat Discontinued Medications Hydromorphone HCl (Dilaudid) 0.5 mg IV NOW ONE Stop: 04/25/19 15:13 Last Admin: 04/25/19 15:46 Dose: 0.5 mg Hydromorphone HCl (Dilaudid) 0.5 mg IV NOW ONE Stop: 04/25/19 18:12 Last Admin: 04/25/19 18:13 Dose: 0.5 mg Ceftriaxone Sodium/Dextrose (Rocephin) 2 gm in 50 mls @ 100 mls/hr IV NOW ONE Stop: 04/25/19 15:11 Last Infusion: 04/25/19 15:54 Dose: 0 mls/hr Admin: 04/25/19 14:53 Dose: 100 mls/hr Consultations Consultation #1: discussed CT with General Surgery. Little concern over GB findings. Call to hospitalist. Cannot keep here given lack of GI Discussed paracentesis with radiology, not enough fluid on CT, cannot do with INR of 1.9. ABX ordered Call to [facility]. No beds Call to [facility] hospitalist. Happy to accept Vital Signs - 8 hr 04/25/19 13:14 04/25/19 13:28 04/25/19 13:30 Temperature 98.6 F Pulse Rate 118 H 118 H 116 H Respiratory Rate 24 19 Blood Pressure 126/80 Blood Pressure [Left Arm] 126/80 113/78 Pulse Oximetry 98 98 99 04/25/19 14:00 04/25/19 15:33 04/25/19 15:59 Temperature 100.5 F H 100.0 F H Pulse Rate 115 H 120 H 121 H Respiratory Rate 19 22 22 Blood Pressure 103/56 L 113/72 Blood Pressure [Left Arm] 100/66 Pulse Oximetry 95 04/25/19 16:35 04/25/19 17:20 04/25/19 18:44 Temperature Pulse Rate 120 H 116 H 118 H Respiratory Rate 20 18 20 Blood Pressure Blood Pressure [Left Arm] 110/71 113/77 103/65 Pulse Oximetry 96 97 95 MDM - Fall Lab Data Result diagrams: 04/25/19 13:25 04/25/19 13:25 Lab Results 04/25/19 04/25/19 04/25/19 Range/Units 13:25 13:25 13:25 WBC 19.5 H (4.5-11.0) X10^3/uL RBC 2.56 L (4.0-5.2) X10^6/uL Hgb 8.0 L (12.0-16.0) g/dL Hct 24.3 L (36-46) % MCV 95.1 (80-100) fL MCH 31.3 (26-34) PG MCHC 32.9 (30-36) % RDW 22.1 H (11.6-14.8) % Plt Count 323 (150-400) X10^3/uL Neut % (Auto) Not Reportable Lymph % (Auto) Not Reportable [place] % (Auto) Not Reportable Eos % (Auto) Not Reportable Baso % (Auto) Not Reportable Lymph # (Auto) Not Reportable [place] # (Auto) Not Reportable Baso # (Auto) Not Reportable Total Counted 100 Seg Neutrophils % 78.0 H (38-70) % Band Neutrophils % 9.0 H (3-7) % Lymphocytes % (Manual) 8.0 L (25-45) % Monocytes % (Manual) 5.0 (2-11) % Neutrophils # (Manual) 51598 H (8035-2971) /uL Nucleated RBCs 1 H ( - 0) #/Diff RBC Morphology See below Polychromasia 2+ H Hypochromasia 2+ H Anisocytosis 2+ H Target Cells 2+ H PT 22.5 H (10.1-12.7) SECONDS INR 1.9 H (0.9-1.3) Sodium (137-145) mmol/L Potassium (3.4-5.1) mmol/L Chloride (98-107) mmol/L Carbon Dioxide (22-32) mmol/L BUN (7-17) mg/dL Creatinine (0.52-1.04) mg/dL Estimated GFR (>60) mL/min BUN/Creatinine Ratio (6-22) Glucose (70-100) mg/dL Lactate (0.7-2.1) mmol/L Calcium (8.4-10.2) mg/dL Magnesium (1.6-2.3) mg/dL Total Bilirubin (0.2-1.3) mg/dL AST (14-36) IU/L ALT (9-52) IU/L Alkaline Phosphatase (38-126) U/L Ammonia (9-30) umol/L Total Protein (6.3-8.2) g/dL Albumin (3.5-5.0) g/dL Globulin (1.7-4.1) g/dL Albumin/Globulin Ratio (1.0-2.8) Urine Color Urine Appearance Urine pH (4.5-8.0) Ur Specific [place] (1.000-1.035) Urine Protein (Negative) Urine Glucose (UA) (Negative) g/dL Urine Ketones (NEGATIVE) Urine Occult Blood (Negative) Urine Nitrate (Negative) Urine Bilirubin (NEGATIVE) Urine Urobilinogen (0.2) E.U./dL Ur Leukocyte Esterase (NEGATIVE) Urine RBC (0-5/HPF) Urine WBC (0-5/HPF) Ur Squamous Epith Cells (0-5/HPF) Urine Bacteria (None) Ur Culture Indicated? Acetaminophen < 10 L (10-30) ug/mL Ethyl Alcohol < 10 mg/dL Blood Type 04/25/19 04/25/19 04/25/19 Range/Units 13:25 13:45 13:45 WBC (4.5-11.0) X10^3/uL RBC (4.0-5.2) X10^6/uL Hgb (12.0-16.0) g/dL Hct (36-46) % MCV (80-100) fL MCH (26-34) PG MCHC (30-36) % RDW (11.6-14.8) % Plt Count (150-400) X10^3/uL Neut % (Auto) Lymph % (Auto) [place] % (Auto) Eos % (Auto) Baso % (Auto) Lymph # (Auto) [place] # (Auto) Baso # (Auto) Total Counted Seg Neutrophils % (38-70) % Band Neutrophils % (3-7) % Lymphocytes % (Manual) (25-45) % Monocytes % (Manual) (2-11) % Neutrophils # (Manual) (4611-7131) /uL Nucleated RBCs ( - 0) #/Diff RBC Morphology Polychromasia Hypochromasia Anisocytosis Target Cells PT (10.1-12.7) SECONDS INR (0.9-1.3) Sodium 131 L (137-145) mmol/L Potassium 3.3 L (3.4-5.1) mmol/L Chloride 94 L (98-107) mmol/L Carbon Dioxide 25 (22-32) mmol/L BUN 13 (7-17) mg/dL Creatinine 0.50 L (0.52-1.04) mg/dL Estimated GFR > 60.0 (>60) mL/min BUN/Creatinine Ratio 26.0 H (6-22) Glucose 100 (70-100) mg/dL Lactate 1.9 (0.7-2.1) mmol/L Calcium 7.9 L (8.4-10.2) mg/dL Magnesium 1.6 (1.6-2.3) mg/dL Total Bilirubin 11.0 H (0.2-1.3) mg/dL AST 220 H (14-36) IU/L ALT 33 (9-52) IU/L Alkaline Phosphatase 547 H (38-126) U/L Ammonia 26.0 (9-30) umol/L Total Protein 8.2 (6.3-8.2) g/dL Albumin 3.0 L (3.5-5.0) g/dL Globulin 5.2 H (1.7-4.1) g/dL Albumin/Globulin Ratio 0.6 L (1.0-2.8) Urine Color Urine Appearance Urine pH (4.5-8.0) Ur Specific [place] (1.000-1.035) Urine Protein (Negative) Urine Glucose (UA) (Negative) g/dL Urine Ketones (NEGATIVE) Urine Occult Blood (Negative) Urine Nitrate (Negative) Urine Bilirubin (NEGATIVE) Urine Urobilinogen (0.2) E.U./dL Ur Leukocyte Esterase (NEGATIVE) Urine RBC (0-5/HPF) Urine WBC (0-5/HPF) Ur Squamous Epith Cells (0-5/HPF) Urine Bacteria (None) Ur Culture Indicated? Acetaminophen (10-30) ug/mL Ethyl Alcohol mg/dL Blood Type 04/25/19 04/25/19 Range/Units 13:45 16:05 WBC (4.5-11.0) X10^3/uL RBC (4.0-5.2) X10^6/uL Hgb (12.0-16.0) g/dL Hct (36-46) % MCV (80-100) fL MCH (26-34) PG MCHC (30-36) % RDW (11.6-14.8) % Plt Count (150-400) X10^3/uL Neut % (Auto) Lymph % (Auto) [place] % (Auto) Eos % (Auto) Baso % (Auto) Lymph # (Auto) [place] # (Auto) Baso # (Auto) Total Counted Seg Neutrophils % (38-70) % Band Neutrophils % (3-7) % Lymphocytes % (Manual) (25-45) % Monocytes % (Manual) (2-11) % Neutrophils # (Manual) (4232-0961) /uL Nucleated RBCs ( - 0) #/Diff RBC Morphology Polychromasia Hypochromasia Anisocytosis Target Cells PT (10.1-12.7) SECONDS INR (0.9-1.3) Sodium (137-145) mmol/L Potassium (3.4-5.1) mmol/L Chloride (98-107) mmol/L Carbon Dioxide (22-32) mmol/L BUN (7-17) mg/dL Creatinine (0.52-1.04) mg/dL Estimated GFR (>60) mL/min BUN/Creatinine Ratio (6-22) Glucose (70-100) mg/dL Lactate (0.7-2.1) mmol/L Calcium (8.4-10.2) mg/dL Magnesium (1.6-2.3) mg/dL Total Bilirubin (0.2-1.3) mg/dL AST (14-36) IU/L ALT (9-52) IU/L Alkaline Phosphatase (38-126) U/L Ammonia (9-30) umol/L Total Protein (6.3-8.2) g/dL Albumin (3.5-5.0) g/dL Globulin (1.7-4.1) g/dL Albumin/Globulin Ratio (1.0-2.8) Urine Color [place] Urine Appearance Clear Urine pH 7.5 (4.5-8.0) Ur Specific [place] <=1.005 (1.000-1.035) Urine Protein 1+ H (Negative) Urine Glucose (UA) Trace H (Negative) g/dL Urine Ketones Trace H (NEGATIVE) Urine Occult Blood Negative (Negative) Urine Nitrate Negative (Negative) Urine Bilirubin 3+ H (NEGATIVE) Urine Urobilinogen 2.0 H (0.2) E.U./dL Ur Leukocyte Esterase Trace H (NEGATIVE) Urine RBC None seen (0-5/HPF) Urine WBC 5-10/hpf H (0-5/HPF) Ur Squamous Epith Cells 5-10 /hpf H (0-5/HPF) Urine Bacteria Many (>30) H (None) Ur Culture Indicated? Cult not indicated Acetaminophen (10-30) ug/mL Ethyl Alcohol mg/dL Blood Type O Positive Imaging Data CT scan - abdomen: Radiologist's impression: [address] [address] [address] Scan Report Signed Patient: Conchita Miguel#: [id number] : 1970Acct:[id number] Age/Sex: 48 / FDate of Service: 04/25/19 Loc: ED Accession Number: [id number] Procedure: CT chest abd pel w con Ordering Provider: Ravinder Nevarez D.O. PROCEDURE: CT CHEST ABD PEL W CON INDICATIONS: trauma, fall, new jaundice, heavy etoh TECHNIQUE: After the administration of intravenous contrast, 5 mm thick sections acquired from the lung apices to the symphysis. 2.5 mm thick coronal and sagittal reformats were acquired. Additional 7 mm thick coronal maximum intensity projection (MIP) reformats acquired through the lungs. Optional 10-minute delayed imaging may be performed from the kidneys to the bladder. For radiation dose reduction, the following was used: automated exposure control, adjustment of mA and/or kV according to patient size. COMPARISON: [facility], CT, ABDOMEN/PELVIS WITH CONTRAST, 02/25/2017, 10:33. [facility], CT, CT ABDOMEN PELVIS W CON, 03/22/2018, 10:06. FINDINGS: Image quality: Excellent. CHEST: Lungs: No pulmonary contusions or lacerations. There is mild dependent atelectasis bilaterally. No pneumothorax or hemothorax. Central and peripheral airways appear patent and normal in caliber. Mediastinum: No mediastinal hematomas. Heart size is normal. No pericardial effusion. Thoracic aorta and pulmonary arteries demonstrate normal size and enhancement. No mediastinal or hilar adenopathy. Esophagus is normal in caliber. No hiatal h ernia. Chest wall: No rib fractures. No subcutaneous emphysema. No axillary or supraclavicular adenopathy. In the ABDOMEN: Solid organs: The liver is markedly enlarged, increased in size compared to the prior study. There is heterogeneous hypoattenuation of the hepatic parenchyma with increased heterogeneity compared to the prior study. Within segment 4B of the inferior left hepatic lobe, there are 2 indistinct hypoattenuating lesions measuring approximately 2.2 x 1.5 cm and 4.5 x 3.8 cm along the gallbladder fossa. The gallbladder is partially distended with mild wall thickening and enhancement. There is a punctate calcified stone within the gallbladder lumen. Biliary system is non-dilated. Pancreas enhances normally, without transection. No pancreatic duct dilatation. Spleen is normal in size and enhancement, without definite lacerations. There is a small linear cleft along the posterior aspect of the spleen which appears similar to the prior study. No adrenal hematomas. Both kidneys enhance normally, without hydronephrosis or lacerations. Peritoneum and bowel: Small bowel loops demonstrate normal wall thickness and caliber. There are surgical sutures along the cecum likely from prior appendectomy. There is mild segmental wall thickening of the ascending colon as well as the sigmoid colon. The findings represent a nonspecific infectious or inflammatory colitis or portal colopathy. Colonic diverticulosis is demonstrated without acute diverticulitis. There is a small to moderate amount of free fluid in the abdomen or pelvis likely representing ascites. Nodes and vessels: No retroperitoneal or mesenteric adenopathy. Aorta and inferior vena cava are normal in size and enhancement. Miscellaneous: No ventral hernias. PELVIS: Genitourinary: Bladder wall thickness is normal. Miscellaneous: No inguinal hernias or adenopathy. Bones: Pelvic ring and hip joints appear intact. No vertebral compression fractures. IMPRESSION: 1. Interval enlargement of the liver with diffuse heterogeneous hypoattenuation. Given reported history of new jaundice, the findings may reflect an acute hepatitis. 2. New hypoattenuating lesions along the gallbladder fossa. Although this may represent focal fatty infiltration or a transient vascular perfusion anomaly, a hepatic mass cannot be excluded. Recommend further evaluation with a liver protocol MRI or CT when clinically feasible. 3. Small to moderate amount of ascites. 4. Partial distention of the gallbladder with mild wall thickening and enhancement and a small calcified gallstone. The findings are nonspecific in the context of liver disease, but if there is clinical suspicion for cholecystitis recommend further evaluatio n with ultrasound. 5. Mild segmental wall thickening in the ascending and sigmoid colon may refl ect portal colopathy versus an infectious or inflammatory colitis. 6. Colonic diverticulosis without acute diverticulitis. Dictated by: Wilfred Robles M.D. on 04/25/2019 at 14:37 Approved by: Wilfred Robles M.D. on 04/25/2019 at 15:22 Critical Care Time Critical Care Time: Yes Total Critical Care Time: 30 Attestation: The high probability of a clinically significant, sudden or life threatening deterioration of the [CV] system(s) required my full and direct attention, intervention and personal management. The aggregate critical care time was [35] minutes. This time is in addition to time spent performing reported procedures but includes the following: [x] Data Review and interpretation [x] Patient assessment and monitoring of vital signs [x] Documentation [x] Medication orders and management Discharge Plan Departure [facility] Clinical Impression: Acute hepatitis, SBP (spontaneous bacterial peritonitis) Prescriptions: No Action amlodipine [Norvasc] 5 MG tablet 5 mg PO DAILY Qty: 0 RF: 0 omeprazole 20 MG capsule,delayed release(DR/EC) 20 mg PO DAILY Qty: 0 RF: 0 hydrochlorothiazide 25 mg PO DAILY RF: 0 lorazepam 0.5 mg tablet 0.5 mg PO DAILY PRN (Reason: Anxiety) RF: 0 potassium chloride 10 mEq tablet extended release 10 meq PO DAILY RF: 0 Referrals: Rozina Murphy PA-C [Primary Care Provider] -
[2019-04-25] MEDS: CEFTRIAXONE 2 GM/50 ML FROZ.PIGGY IV (14:53)
[2019-04-25] MEDS: HYDROMORPHONE 1 MG INJ 0.5 MG IV ×2 (15:46→18:13)
--- NOTE | 2019-04-25 15:48 | TAR.TRANSNT ---
override for FFP required related to what is explained to me as a known issue with the coding of ffp units frozen vs. thawed. unsurprisingly, this unresolved charting issue led to a slight delay in the administration of the ffp.
[2019-04-25 16:41] LABS: RBC Urine None Seen (0-5/HPF)
[2019-04-25 16:50] LABS: Appearance Urine UA CLEAR; Bilirubin Urine UA 3+ (NEGATIVE); Color Urine UA ORANGE; Glucose Urine UA TRACE g/dL (Negative); Ketones Urine UA TRACE (NEGATIVE); Leukocyte Esterase Urine UA TRACE (NEGATIVE); Nitrite Urine UA NEGATIVE (Negative); Occult Blood Urine UA NEGATIVE (Negative); Protein Urine UA 1+ (Negative); Specific Gravity Urine UA <=1.005 (1.000-1.035); pH Urine UA 7.5 (4.5-8.0)
[2019-04-25 17:23] LABS: Squamous Epithelial Cell Urine 5-10 /HPF (0-5/HPF)
[2019-04-25 17:24] LABS: Bacteria Urine Many (>30); Culture Indicated Urine Cult Not Indicated; WBC Urine 5-10/HPF (0-5/HPF)
[2019-04-27 16:30] LABS: Hepatitis A Antibody IgM NONREACTIVE (NONREACTIVE); Hepatitis Acute Panel Interp 0.06; Hepatitis B Core Antibody IgM NONREACTIVE (NONREACTIVE); Hepatitis B Surface Antigen NONREACTIVE (NONREACTIVE); Hepatitis C Antibody NONREACTIVE
== END 2019-04-25 16:50 | disposition short-term general hospital (02) ==
PROVIDERS: Emergency Provider Emergency Medicine; PCP Student in an Organized Health Care Education/Training Program
DX: B17.9 Acute viral hepatitis, unspecified (principal); K65.2 Spontaneous bacterial peritonitis; Z91.81 History of falling
CPT/HCPCS: 36430; 36591; 71260; 74177; 80053; 80074; 80320; 80329; 81001; 82140; 83605; 83735; 85025; 85610; 86900; 86901; 86927; 87040; 96365; 96375; 99284; P9016; G0480; J0696; J1170; Q9967

== ENCOUNTER → 2020-08-17 17:15 | Outpatient (CLI) | payer OTHER, MEDICAID, SELFPAY ==
--- NOTE | 2020-08-17 | DI.MG.S_ITS ---
BILATERAL DIGITAL SCREENING MAMMOGRAM 3D/2D WITH CAD: 08/17/2020 CLINICAL: Routine screening. Family history of breast cancer. Comparison is made to exam dated: 06/23/2011 mammogram - [facility]. The tissue of both breasts is heterogeneously dense. This may lower the sensitivity of mammography. Current study was also evaluated with a Computer Aided Detection (CAD) system. There are likely cysts in the left breast in the upper outer quadrant that are not significantly changed. There is a 1.1 cm oval equal density asymmetry in the left breast anterior depth medial region seen on the craniocaudal view only. This is more prominent and increased in size. No other significant masses, calcifications, or other findings are seen in either breast. IMPRESSION: INCOMPLETE: NEEDS ADDITIONAL IMAGING EVALUATION The 1.1 cm oval equal density asymmetry in the left breast is indeterminate. An ultrasound is recommended for further evaluation and is scheduled to immediately follow this study. This exam was interpreted at Station ID: [id number]. NOTE: For mammograms, a report in lay terms will be sent to the patient. Approximately 15% of breast malignancies will not be visualized mammographically. In the management of a palpable breast mass, a negative mammogram must not discourage biopsy of a clinically suspicious lesion. Electronically Signed By: Federico Padron M.D. aty/:08/20/2020 12:40:31 letter sent: Additional Imaging Needed ACR BI-RADS Category 0: Incomplete [id number]
== END ==
PROVIDERS: Visit Provider General Practice
DX: Z12.31 Encounter for screening mammogram for malignant neoplasm of breast (principal); N63.21 Unspecified lump in the left breast, upper outer quadrant; Z80.3 Family history of malignant neoplasm of breast
CPT/HCPCS: 77063; 77067

== ENCOUNTER → 2020-09-11 12:27 | Outpatient (CLI) | payer OTHER, MEDICAID, SELFPAY ==
--- NOTE | 2020-09-11 | DI.US.S_ITS ---
ULTRASOUND OF LEFT BREAST: 09/11/2020 CLINICAL: Patient returns today to evaluate a focal asymmetry in the left breast. Comparison is made to exams dated: 08/17/2020 mammogram - [facility] and 06/23/2011 mammogram - [facility]. Color flow and Doppler ultrasound of the left breast were performed. There is a mass in the left breast central to the nipple anterior depth. IMPRESSION: PROBABLY BENIGN There is no abnormality seen in the left breast to correspond with the mammography finding in the lower aspect which is consistent with normal fibroglandular tissue. A follow-up mammogram with compression views and an ultrasound if needed in 6 months is recommended to demonstrate stability. This exam was interpreted at Station ID: [id number]. Electronically Signed By: Chilango Nichole acr/:09/11/2020 13:16:59 letter sent: Followup Recommended Ultrasound BI-RADS: 3 Probably benign
== END ==
PROVIDERS: Referring Provider General Practice; Visit Provider General Practice
DX: R92.8 Other abnormal and inconclusive findings on diagnostic imaging of breast (principal); N64.89 Other specified disorders of breast
CPT/HCPCS: 76642

== ENCOUNTER 2020-10-08 14:28 | Emergency (ER) | payer OTHER, MEDICAID, SELFPAY ==
[2020-10-08] VITALS (14 sets, daily range): BP systolic 84–125; BP diastolic 50–68; PULSE 76–90; RESP 17–23; TEMP 35.9; O2SAT 91–98
--- NOTE | 2020-10-08 15:07 | ED_ITS ---
HPI - GI Bleed <CALI Nielsen - Last Filed: 10/08/20 16:26> General Chief complaint: GI Bleed Stated complaint: Rectal Bleeding Time Seen by Provider: 10/08/20 14:51 Source: patient and family Mode of arrival: Ambulatory Limitations: no limitations History of Present Illness HPI Narrative: A 49-year-old female nonsmoker with history of ?severe alcoholism who presents with a chief complaint of blood coming from her rectum. She is not sure if it started last night or this morning, her friend states it started this morning. She has a history of acute hepatitis, SBP, and multiple GI bleeds. She states that she was discharged from [facility] 2 or 3 weeks ago. She states that she has some stomach cramping, but no fever shortness of breath or chest pain. She denies any confusion or urinary symptoms. She states that she has had ?issues with her liver recently.She states that all of a sudden she had bright red blood running down the back of her legs earlier today. She is co ncerned as she has a history of multiple GI bleeds and states she is ?a bleeder because of the liver.The patient drinks reportedly 1 pt of hard alcohol per day. Related Data Home Medications Medication Instructions Recorded Confirmed amlodipine [Norvasc] 5 mg PO DAILY #0 02/26/17 04/25/19 omeprazole 20 mg PO DAILY #0 02/26/17 04/25/19 hydrochlorothiazide 25 mg PO DAILY 04/12/18 04/25/19 lorazepam 0.5 mg PO DAILY PRN 04/25/19 04/25/19 potassium chloride 10 meq PO DAILY 04/25/19 04/25/19 Allergies Allergy/AdvReac Type Severity Reaction Status Date / Time acetaminophen [From Vicodin] AdvReac Mild itching Verified 05/11/18 11:38 codeine AdvReac Mild itching Verified 05/11/18 11:38 hydrocodone [From Vicodin] AdvReac Mild itching Verified 05/11/18 11:38 oxycodone [From Percocet] AdvReac Mild itching Verified 05/11/18 11:38 Review of Systems <CALI Nielsen - Last Filed: 10/08/20 16:26> Review of Systems Narrative: GENERAL: Denies chills, fatigue, malaise, fever, sweats. HEENT: Denies sinus pain, ear pain, sore throat, difficulty swallowing, dizzi ness. RESPIRATORY: Denies dyspnea, cough, wheezing, hemoptysis, sputum. CARDIOVASCULAR: Denies chest pain, palpitations, orthopnea, edema, GASTROINTESTINAL: See HPI : Denies dysuria, frequency, incontinence, hematuria, urinary retention. MUSCULOSKELETAL: denies weakness, joint pain, or bony pain SKIN: Denies rash, skin lesions, or other NEUROLOGIC: Denies weakness, headache, numbness, change in speech, confusion, seizures, incoordination. PSYCHIATRIC: No concerning psychosocial issues. 12 point review of systems is negative except for those stated above Patient History <CALI Nielsen - Last Filed: 10/08/20 16:26> Medical History (Updated 10/08/20 @ 20:26 by Jamie Grande DO) Anxiety Diverticulosis Epistaxis Fatty liver History of abnormal cervical Pap smear HTN (hypertension) Pelvic mass RLQ abdominal pain Surgical History H/O tubal ligation H/O wisdom tooth extraction History of reduction mammoplasty History of tubal ligation Family History Sister Hypertension Father Diabetes mellitus Grandfather Diabetes mellitus Grandmother Stroke Social History household members: significant other Smoking Status: Never smoker alcohol intake: current Smoking Status: Never smoker Exam <CALI Nielsen - Last Filed: 10/08/20 16:26> Narrative Exam Narrative: GENERAL: Thin female lying on stretcher in no acute distress HEAD: Atraumatic. Normocephalic. No temporal or scalp tenderness. EYES: Pupils equal round and reactive. Extraocular motions intact. No scleral icterus. No injection or drainage. Jaundice noted ENT: Nose without bleeding, purulent drainage or septal hematoma. Throat without erythema, tonsillar hypertrophy or exudate. Uvula midline. Airway patent. NECK: Trachea midline. No JVD or lymphadenopathy. Supple, nontender, no meningeal signs. CARDIOVASCULAR: Regular rate and rhythm without murmurs, gallops, or rubs. RESPIRATORY: Clear to auscultation. Breath sounds equal bilaterally. No wheezes, rales, or rhonchi. No cough. No increased respiratory effort. No accessory muscle use. GASTROINTESTINAL: Abdomen soft, non-tender, active bowel sounds all 4 quadrants. Tenderness to palpation of center of abdomen that is diffuse, no guarding EXTREMITIES: No clubbing, cyanosis, or edema. No joint tenderness, effusion, or edema noted. BACK: Nontender without deformity or crepitance. No flank tenderness. NEURO: AOx3. SKIN: No rash or erythema. Jaundiced. Initial Vital Signs Initial Vital Signs: Vital Signs Temperature 96.6 F L 10/08/20 14:38 Pulse Rate 85 10/08/20 14:38 Respiratory Rate 20 10/08/20 14:38 Blood Pressure 125/68 10/08/20 14:38 Pulse Oximetry 98 10/08/20 14:38 <Monik Cross DO - Last Filed: 10/09/20 07:37> Initial Vital Signs Initial Vital Signs: Vital Signs Temperature 96.6 F L 10/08/20 14:38 Pulse Rate 85 10/08/20 14:38 Respiratory Rate 10/08/20 14:38 Blood Pressure 125/68 10/08/20 14:38 Pulse Oximetry 98 10/08/20 14:38 <Jamie Grande DO - Last Filed: 10/08/20 22:24> Initial Vital Signs Initial Vital Signs: Vital Signs Temperature 96.6 F L 10/08/20 14:38 Pulse Rate 85 10/08/20 14:38 Respiratory Rate 10/08/20 14:38 Blood Pressure 125/68 10/08/20 14:38 Pulse Oximetry 98 10/08/20 14:38 Procedures <CALI Nielsen Last Filed: 10/08/20 16:26> Stool Hemoccult Procedural Steps Taken: stool placed in appropriate test area, developer placed on stool and control areas and controls appropriately positive and negative Hemoccult result: positive Additional Comments: with Beverley BOWER at bedside Scores <CALI Nielsen Last Filed: 10/08/20 16:26> GCS Vin coma scale eye opening: Spontaneous Vin coma scale verbal response: Orientated Vin coma scale motor response: Obey commands Vin coma scale total score: 15 Course <Viola BarnettZACHERYP-BC - Last Filed: 10/08/20 16:26> Course Course Narrative: Patient signed out to Dr. Cross at 4:30 p.m. with workup pending Orders Ordered: Discontinued Medications Sodium Chloride (Normal Saline 0.9%) 1,000 mls @ 150 mls/hr IV CONT CATA Last Infusion: 10/08/20 20:51 Dose: 0 mls/hr Documented by: Admin: 10/08/20 18:22 Dose: 150 mls/hr Documented by: ALEXANDER Lorazepam (Lorazepam 0.5 Mg Tablet) 0.5 mg PO NOW ONE Stop: 10/08/20 16:25 Last Admin: 10/08/20 16:40 Dose: 0.5 mg Documented by: ALEXANDER Lorazepam (Lorazepam 2 Mg/Ml Inj) 1 mg IV NOW ONE Stop: 10/08/20 20:36 Last Admin: 10/08/20 20:41 Dose: 1 mg Documented by: JAD Pantoprazole Sodium (Pantoprazole 40 Mg Vial) 40 mg IV NOW ONE Stop: 10/08/20 17:47 Last Admin: 10/08/20 18:22 Dose: 40 mg Documented by: ALEXANDER Vital Signs Vital signs: Vital Signs - 8 hr 10/08/20 14:38 10/08/20 16:47 10/08/20 17:00 Temperature 96.6 F L Pulse Rate 85 80 79 Respiratory Rate 20 23 Blood Pressure 125/68 104/68 Pulse Oximetry 98 96 94 10/08/20 17:30 10/08/20 17:47 10/08/20 18:00 Temperature Pulse Rate 76 82 78 Respiratory Rate 17 21 23 Blood Pressure 84/52 L 112/61 Pulse Oximetry 94 93 93 10/08/20 18:29 10/08/20 18:30 10/08/20 19:00 Temperature Pulse Rate 80 80 82 Respiratory Rate 23 22 19 Blood Pressure 105/63 106/66 Pulse Oximetry 93 92 92 10/08/20 19:30 10/08/20 19:33 10/08/20 20:00 Temperature Pulse Rate 83 83 83 Respiratory Rate 17 20 23 Blood Pressure 99/57 L 91/67 Pulse Oximetry 91 91 92 10/08/20 20:30 10/08/20 20:43 Temperature Pulse Rate 84 90 Respiratory Rate 19 22 Blood Pressure 90/50 L 104/59 L Pulse Oximetry 91 95 <Monik Cross, DO - Last Filed: 10/09/20 07:37> Orders Ordered: Discontinued Medications Sodium Chloride (Normal Saline 0.9%) 1,000 mls @ 150 mls/hr IV CONT CATA Last Infusion: 10/08/20 20:51 Dose: 0 mls/hr Documented by: Admin: 10/08/20 18:22 Dose: 150 mls/hr Documented by: ALEXANDER Lorazepam (Lorazepam 0.5 Mg Tablet) 0.5 mg PO NOW ONE Stop: 10/08/20 16:25 Last Admin: 10/08/20 16:40 Dose: 0.5 mg Documented by: ALEXANDER Lorazepam (Lorazepam 2 Mg/Ml Inj) 1 mg IV NOW ONE Stop: 10/08/20 20:36 Last Admin: 10/08/20 20:41 Dose: 1 mg Documented by: JAD Pantoprazole Sodium (Pantoprazole 40 Mg Vial) 40 mg IV NOW ONE Stop: 10/08/20 17:47 Last Admin: 10/08/20 18:22 Dose: 40 mg Documented by: ALEXANDER Vital Signs Vital signs: Vital Signs - 8 hr 10/08/20 14:38 10/08/20 16:47 10/08/20 17:00 Temperature 96.6 F L Pulse Rate 85 80 79 Respiratory Rate 20 23 Blood Pressure 125/68 104/68 Pulse Oximetry 98 96 94 10/08/20 17:30 10/08/20 17:47 10/08/20 18:00 Temperature Pulse Rate 76 82 78 Respiratory Rate 17 21 23 Blood Pressure 84/52 L 112/61 Pulse Oximetry 94 93 93 10/08/20 18:29 10/08/20 18:30 10/08/20 19:00 Temperature Pulse Rate 80 80 82 Respiratory Rate 23 22 19 Blood Pressure 105/63 106/66 Pulse Oximetry 93 92 92 10/08/20 19:30 10/08/20 19:33 10/08/20 20:00 Temperature Pulse Rate 83 83 83 Respiratory Rate 17 20 23 Blood Pressure 99/57 L 91/67 Pulse Oximetry 91 91 92 10/08/20 20:30 10/08/20 20:43 Temperature Pulse Rate 84 90 Respiratory Rate 19 22 Blood Pressure 90/50 L 104/59 L Pulse Oximetry 91 95 <Jamie Grande, DO - Last Filed: 10/08/20 22:24> Orders Ordered: Discontinued Medications Sodium Chloride (Normal Saline 0.9%) 1,000 mls @ 150 mls/hr IV CONT CATA Last Infusion: 10/08/20 20:51 Dose: 0 mls/hr Documented by: Admin: 10/08/20 18:22 Dose: 150 mls/hr Documented by: ALEXANDER Lorazepam (Lorazepam 0.5 Mg Tablet) 0.5 mg PO NOW ONE Stop: 10/08/20 16:25 Last Admin: 10/08/20 16:40 Dose: 0.5 mg Documented by: ALEXANDER Lorazepam (Lorazepam 2 Mg/Ml Inj) 1 mg IV NOW ONE Stop: 10/08/20 20:36 Last Admin: 10/08/20 20:41 Dose: 1 mg Documented by: JAD Pantoprazole Sodium (Pantoprazole 40 Mg Vial) 40 mg IV NOW ONE Stop: 10/08/20 17:47 Last Admin: 10/08/20 18:22 Dose: 40 mg Documented by: ALEXANDER Vital Signs Vital signs: Vital Signs - 8 hr 10/08/20 14:38 10/08/20 16:47 10/08/20 17:00 Temperature 96.6 F L Pulse Rate 85 80 79 Respiratory Rate 20 23 Blood Pressure 125/68 104/68 Pulse Oximetry 98 96 94 10/08/20 17:30 10/08/20 17:47 10/08/20 18:00 Temperature Pulse Rate 76 82 78 Respiratory Rate 17 21 23 Blood Pressure 84/52 L 112/61 Pulse Oximetry 94 93 93 10/08/20 18:29 10/08/20 18:30 10/08/20 19:00 Temperature Pulse Rate 80 80 82 Respiratory Rate 23 22 19 Blood Pressure 105/63 106/66 Pulse Oximetry 93 92 92 10/08/20 19:30 10/08/20 19:33 10/08/20 20:00 Temperature Pulse Rate 83 83 83 Respiratory Rate 17 20 23 Blood Pressure 99/57 L 91/67 Pulse Oximetry 91 91 92 10/08/20 20:30 10/08/20 20:43 Temperature Pulse Rate 84 90 Respiratory Rate 19 22 Blood Pressure 90/50 L 104/59 L Pulse Oximetry 91 95 MDM - GI Bleed <Viola Barnett, BAG LINER-BC - Last Filed: 10/08/20 16:26> Lab Data Attestation: I reviewed the patient's lab results. Result diagrams: 10/08/20 15:58 10/08/20 15:58 Labs: Lab Results 10/08/20 10/08/20 10/08/20 Range/Units 15:24 15:58 15:58 WBC 5.1 (4.5-11.0) X10^3/uL RBC 2.97 L (4.0-5.2) X10^6/uL Hgb 10.3 L (12.0-16.0) g/dL Hct 30.5 L (36-46) % MCV 102.7 H (80-100) fL MCH 34.7 H (26-34) PG MCHC 33.8 (30-36) % RDW 16.1 H (11.6-14.8) % Plt Count 109 L (150-400) X10^3/uL Neut % (Auto) Not Reportable Lymph % (Auto) Not Reportable [place] % (Auto) Not Reportable Eos % (Auto) Not Reportable Baso % (Auto) Not Reportable Lymph # (Auto) Not Reportable [place] # (Auto) Not Reportable Baso # (Auto) Not Reportable Total Counted 100 Seg Neutrophils % 71.0 H (38-70) % Band Neutrophils % 6.0 (3-7) % Lymphocytes % (Manual) 17.0 L (25-45) % Monocytes % (Manual) 4.0 (2-11) % Eosinophils % (Manual) 1.0 L (2-4) % Basophils % (Manual) 1.0 (0-1) % Neutrophils # (Manual) 3927 (8594-9477) /uL RBC Morphology Normal morphology PT 17.2 H (10.1-12.7) SECONDS INR 1.5 H (0.9-1.3) APTT 45 H (26.4-36.2) SECONDS Sodium (137-145) mmol/L Potassium (3.4-5.1) mmol/L Chloride (98-107) mmol/L Carbon Dioxide (22-32) mmol/L BUN (7-17) mg/dL Creatinine (0.52-1.04) mg/dL Estimated GFR (>60) mL/min BUN/Creatinine Ratio (6-22) Glucose (70-100) mg/dL Lactate (0.7-2.1) mmol/L Calcium (8.4-10.2) mg/dL Total Bilirubin (0.2-1.3) mg/dL AST (14-36) IU/L ALT (<35) IU/L Alkaline Phosphatase (38-126) U/L Total Protein (6.3-8.2) g/dL Albumin (3.5-5.0) g/dL Globulin (1.7-4.1) g/dL Albumin/Globulin Ratio (1.0-2.8) Ethyl Alcohol ( - 10) mg/dL SARS-CoV-2 (PCR) Negative (Negative) Blood Type Antibody Screen 10/08/20 10/08/20 10/08/20 Range/Units 15:58 15:58 15:58 WBC (4.5-11.0) X10^3/uL RBC (4.0-5.2) X10^6/uL Hgb (12.0-16.0) g/dL Hct (36-46) % MCV (80-100) fL MCH (26-34) PG MCHC (30-36) % RDW (11.6-14.8) % Plt Count (150-400) X10^3/uL Neut % (Auto) Lymph % (Auto) [place] % (Auto) Eos % (Auto) Baso % (Auto) Lymph # (Auto) [place] # (Auto) Baso # (Auto) Total Counted Seg Neutrophils % (38-70) % Band Neutrophils % (3-7) % Lymphocytes % (Manual) (25-45) % Monocytes % (Manual) (2-11) % Eosinophils % (Manual) (2-4) % Basophils % (Manual) (0-1) % Neutrophils # (Manual) (7386-6286) /uL RBC Morphology PT (10.1-12.7) SECONDS INR (0.9-1.3) APTT (26.4-36.2) SECONDS Sodium 143 (137-145) mmol/L Potassium 4.4 (3.4-5.1) mmol/L Chloride 106 (98-107) mmol/L Carbon Dioxide 31 (22-32) mmol/L BUN 6 L (7-17) mg/dL Creatinine 0.31 L (0.52-1.04) mg/dL Estimated GFR > 60.0 (>60) mL/min BUN/Creatinine Ratio 19.4 (6-22) Glucose 120 H (70-100) mg/dL Lactate 2.8 H (0.7-2.1) mmol/L Calcium 8.6 (8.4-10.2) mg/dL Total Bilirubin 5.7 H (0.2-1.3) mg/dL AST 99 H (14-36) IU/L ALT 48 H (<35) IU/L Alkaline Phosphatase 200 H (38-126) U/L Total Protein 8.0 (6.3-8.2) g/dL Albumin 3.7 (3.5-5.0) g/dL Globulin 4.3 H (1.7-4.1) g/dL Albumin/Globulin Ratio 0.9 L (1.0-2.8) Ethyl Alcohol ( - 10) mg/dL SARS-CoV-2 (PCR) (Negative) Blood Type O Positive Antibody Screen Negative 10/08/20 10/08/20 Range/Units 15:58 18:22 WBC (4.5-11.0) X10^3/uL RBC (4.0-5.2) X10^6/uL Hgb (12.0-16.0) g/dL Hct (36-46) % MCV (80-100) fL MCH (26-34) PG MCHC (30-36) % RDW (11.6-14.8) % Plt Count (150-400) X10^3/uL Neut % (Auto) Lymph % (Auto) [place] % (Auto) Eos % (Auto) Baso % (Auto) Lymph # (Auto) [place] # (Auto) Baso # (Auto) Total Counted Seg Neutrophils % (38-70) % Band Neutrophils % (3-7) % Lymphocytes % (Manual) (25-45) % Monocytes % (Manual) (2-11) % Eosinophils % (Manual) (2-4) % Basophils % (Manual) (0-1) % Neutrophils # (Manual) (4956-1909) /uL RBC Morphology PT (10.1-12.7) SECONDS INR (0.9-1.3) APTT (26.4-36.2) SECONDS Sodium (137-145) mmol/L Potassium (3.4-5.1) mmol/L Chloride (98-107) mmol/L Carbon Dioxide (22-32) mmol/L BUN (7-17) mg/dL Creatinine (0.52-1.04) mg/dL Estimated GFR (>60) mL/min BUN/Creatinine Ratio (6-22) Glucose (70-100) mg/dL Lactate 1.5 (0.7-2.1) mmol/L Calcium (8.4-10.2) mg/dL Total Bilirubin (0.2-1.3) mg/dL AST (14-36) IU/L ALT (<35) IU/L Alkaline Phosphatase (38-126) U/L Total Protein (6.3-8.2) g/dL Albumin (3.5-5.0) g/dL Globulin (1.7-4.1) g/dL Albumin/Globulin Ratio (1.0-2.8) Ethyl Alcohol 348 H ( - 10) mg/dL SARS-CoV-2 (PCR) (Negative) Blood Type Antibody Screen <Monik Cross, DO - Last Filed: 10/09/20 07:37> Lab Data Attestation: I reviewed the patient's lab results. Labs: Lab Results 10/08/20 10/08/20 10/08/20 Range/Units 15:24 15:58 15:58 WBC 5.1 (4.5-11.0) X10^3/uL RBC 2.97 L (4.0-5.2) X10^6/uL Hgb 10.3 L (12.0-16.0) g/dL Hct 30.5 L (36-46) % MCV 102.7 H (80-100) fL MCH 34.7 H (26-34) PG MCHC 33.8 (30-36) % RDW 16.1 H (11.6-14.8) % Plt Count 109 L (150-400) X10^3/uL Neut % (Auto) Not Reportable Lymph % (Auto) Not Reportable [place] % (Auto) Not Reportable Eos % (Auto) Not Reportable Baso % (Auto) Not Reportable Lymph # (Auto) Not Reportable [place] # (Auto) Not Reportable Baso # (Auto) Not Reportable Total Counted 100 Seg Neutrophils % 71.0 H (38-70) % Band Neutrophils % 6.0 (3-7) % Lymphocytes % (Manual) 17.0 L (25-45) % Monocytes % (Manual) 4.0 (2-11) % Eosinophils % (Manual) 1.0 L (2-4) % Basophils % (Manual) 1.0 (0-1) % Neutrophils # (Manual) 3927 (6597-7593) /uL RBC Morphology Normal morphology PT 17.2 H (10.1-12.7) SECONDS INR 1.5 H (0.9-1.3) APTT 45 H (26.4-36.2) SECONDS Sodium (137-145) mmol/L Potassium (3.4-5.1) mmol/L Chloride (98-107) mmol/L Carbon Dioxide (22-32) mmol/L BUN (7-17) mg/dL Creatinine (0.52-1.04) mg/dL Estimated GFR (>60) mL/min BUN/Creatinine Ratio (6-22) Glucose (70-100) mg/dL Lactate (0.7-2.1) mmol/L Calcium (8.4-10.2) mg/dL Total Bilirubin (0.2-1.3) mg/dL AST (14-36) IU/L ALT (<35) IU/L Alkaline Phosphatase (38-126) U/L Total Protein (6.3-8.2) g/dL Albumin (3.5-5.0) g/dL Globulin (1.7-4.1) g/dL Albumin/Globulin Ratio (1.0-2.8) Ethyl Alcohol ( - 10) mg/dL SARS-CoV-2 (PCR) Negative (Negative) Blood Type Antibody Screen 10/08/20 10/08/20 10/08/20 Range/Units 15:58 15:58 15:58 WBC (4.5-11.0) X10^3/uL RBC (4.0-5.2) X10^6/uL Hgb (12.0-16.0) g/dL Hct (36-46) % MCV (80-100) fL MCH (26-34) PG MCHC (30-36) % RDW (11.6-14.8) % Plt Count (150-400) X10^3/uL Neut % (Auto) Lymph % (Auto) [place] % (Auto) Eos % (Auto) Baso % (Auto) Lymph # (Auto) [place] # (Auto) Baso # (Auto) Total Counted Seg Neutrophils % (38-70) % Band Neutrophils % (3-7) % Lymphocytes % (Manual) (25-45) % Monocytes % (Manual) (2-11) % Eosinophils % (Manual) (2-4) % Basophils % (Manual) (0-1) % Neutrophils # (Manual) (7475-8336) /uL RBC Morphology PT (10.1-12.7) SECONDS INR (0.9-1.3) APTT (26.4-36.2) SECONDS Sodium 143 (137-145) mmol/L Potassium 4.4 (3.4-5.1) mmol/L Chloride 106 (98-107) mmol/L Carbon Dioxide 31 (22-32) mmol/L BUN 6 L (7-17) mg/dL Creatinine 0.31 L (0.52-1.04) mg/dL Estimated GFR > 60.0 (>60) mL/min BUN/Creatinine Ratio 19.4 (6-22) Glucose 120 H (70-100) mg/dL Lactate 2.8 H (0.7-2.1) mmol/L Calcium 8.6 (8.4-10.2) mg/dL Total Bilirubin 5.7 H (0.2-1.3) mg/dL AST 99 H (14-36) IU/L ALT 48 H (<35) IU/L Alkaline Phosphatase 200 H (38-126) U/L Total Protein 8.0 (6.3-8.2) g/dL Albumin 3.7 (3.5-5.0) g/dL Globulin 4.3 H (1.7-4.1) g/dL Albumin/Globulin Ratio 0.9 L (1.0-2.8) Ethyl Alcohol ( - 10) mg/dL SARS-CoV-2 (PCR) (Negative) Blood Type O Positive Antibody Screen Negative 01/11/21 01/11/21 Range/Units 15:58 18:22 WBC (4.5-11.0) X10^3/uL RBC (4.0-5.2) X10^6/uL Hgb (12.0-16.0) g/dL Hct (36-46) % MCV (80-100) fL MCH (26-34) PG MCHC (30-36) % RDW (11.6-14.8) % Plt Count (150-400) X10^3/uL Neut % (Auto) Lymph % (Auto) [place] % (Auto) Eos % (Auto) Baso % (Auto) Lymph # (Auto) [place] # (Auto) Baso # (Auto) Total Counted Seg Neutrophils % (38-70) % Band Neutrophils % (3-7) % Lymphocytes % (Manual) (25-45) % Monocytes % (Manual) (2-11) % Eosinophils % (Manual) (2-4) % Basophils % (Manual) (0-1) % Neutrophils # (Manual) (9490-2316) /uL RBC Morphology PT (10.1-12.7) SECONDS INR (0.9-1.3) APTT (26.4-36.2) SECONDS Sodium (137-145) mmol/L Potassium (3.4-5.1) mmol/L Chloride (98-107) mmol/L Carbon Dioxide (22-32) mmol/L BUN (7-17) mg/dL Creatinine (0.52-1.04) mg/dL Estimated GFR (>60) mL/min BUN/Creatinine Ratio (6-22) Glucose (70-100) mg/dL Lactate 1.5 (0.7-2.1) mmol/L Calcium (8.4-10.2) mg/dL Total Bilirubin (0.2-1.3) mg/dL AST (14-36) IU/L ALT (<35) IU/L Alkaline Phosphatase (38-126) U/L Total Protein (6.3-8.2) g/dL Albumin (3.5-5.0) g/dL Globulin (1.7-4.1) g/dL Albumin/Globulin Ratio (1.0-2.8) Ethyl Alcohol 348 H ( - 10) mg/dL SARS-CoV-2 (PCR) (Negative) Blood Type Antibody Screen MDM Narrative Medical decision making narrative: I received sign-out from Viola Barnett I have seen evaluated patient myself. She has been seen as scheduled multiple times and had multiple colonoscopies. Scattered records have been requested hours ago still waiting.. She is hemodynamically stable guaiac-positive. 175 Dr. Feliciano surgery updated on patient's symptoms test results. Based on patient's alcohol history recommend she go somewhere else where there is GI available. [facility] Patient signed out to Dr. Grande <Jamie Grande, DO - Last Filed: 10/08/20 22:24> Lab Data Labs: Lab Results 10/08/20 10/08/20 10/08/20 Range/Units 15:24 15:58 15:58 WBC 5.1 (4.5-11.0) X10^3/uL RBC 2.97 L (4.0-5.2) X10^6/uL Hgb 10.3 L (12.0-16.0) g/dL Hct 30.5 L (36-46) % MCV 102.7 H (80-100) fL MCH 34.7 H (26-34) PG MCHC 33.8 (30-36) % RDW 16.1 H (11.6-14.8) % Plt Count 109 L (150-400) X10^3/uL Neut % (Auto) Not Reportable Lymph % (Auto) Not Reportable [place] % (Auto) Not Reportable Eos % (Auto) Not Reportable Baso % (Auto) Not Reportable Lymph # (Auto) Not Reportable [place] # (Auto) Not Reportable Baso # (Auto) Not Reportable Total Counted 100 Seg Neutrophils % 71.0 H (38-70) % Band Neutrophils % 6.0 (3-7) % Lymphocytes % (Manual) 17.0 L (25-45) % Monocytes % (Manual) 4.0 (2-11) % Eosinophils % (Manual) 1.0 L (2-4) % Basophils % (Manual) 1.0 (0-1) % Neutrophils # (Manual) 3927 (3033-9411) /uL RBC Morphology Normal morphology PT 17.2 H (10.1-12.7) SECONDS INR 1.5 H (0.9-1.3) APTT 45 H (26.4-36.2) SECONDS Sodium (137-145) mmol/L Potassium (3.4-5.1) mmol/L Chloride (98-107) mmol/L Carbon Dioxide (22-32) mmol/L BUN (7-17) mg/dL Creatinine (0.52-1.04) mg/dL Estimated GFR (>60) mL/min BUN/Creatinine Ratio (6-22) Glucose (70-100) mg/dL Lactate (0.7-2.1) mmol/L Calcium (8.4-10.2) mg/dL Total Bilirubin (0.2-1.3) mg/dL AST (14-36) IU/L ALT (<35) IU/L Alkaline Phosphatase (38-126) U/L Total Protein (6.3-8.2) g/dL Albumin (3.5-5.0) g/dL Globulin (1.7-4.1) g/dL Albumin/Globulin Ratio (1.0-2.8) Ethyl Alcohol ( - 10) mg/dL SARS-CoV-2 (PCR) Negative (Negative) Blood Type Antibody Screen 10/08/20 10/08/20 10/08/20 Range/Units 15:58 15:58 15:58 WBC (4.5-11.0) X10^3/uL RBC (4.0-5.2) X10^6/uL Hgb (12.0-16.0) g/dL Hct (36-46) % MCV (80-100) fL MCH (26-34) PG MCHC (30-36) % RDW (11.6-14.8) % Plt Count (150-400) X10^3/uL Neut % (Auto) Lymph % (Auto) [place] % (Auto) Eos % (Auto) Baso % (Auto) Lymph # (Auto) [place] # (Auto) Baso # (Auto) Total Counted Seg Neutrophils % (38-70) % Band Neutrophils % (3-7) % Lymphocytes % (Manual) (25-45) % Monocytes % (Manual) (2-11) % Eosinophils % (Manual) (2-4) % Basophils % (Manual) (0-1) % Neutrophils # (Manual) (0918-8520) /uL RBC Morphology PT (10.1-12.7) SECONDS INR (0.9-1.3) APTT (26.4-36.2) SECONDS Sodium 143 (137-145) mmol/L Potassium 4.4 (3.4-5.1) mmol/L Chloride 106 (98-107) mmol/L Carbon Dioxide 31 (22-32) mmol/L BUN 6 L (7-17) mg/dL Creatinine 0.31 L (0.52-1.04) mg/dL Estimated GFR > 60.0 (>60) mL/min BUN/Creatinine Ratio 19.4 (6-22) Glucose 120 H (70-100) mg/dL Lactate 2.8 H (0.7-2.1) mmol/L Calcium 8.6 (8.4-10.2) mg/dL Total Bilirubin 5.7 H (0.2-1.3) mg/dL AST 99 H (14-36) IU/L ALT 48 H (<35) IU/L Alkaline Phosphatase 200 H (38-126) U/L Total Protein 8.0 (6.3-8.2) g/dL Albumin 3.7 (3.5-5.0) g/dL Globulin 4.3 H (1.7-4.1) g/dL Albumin/Globulin Ratio 0.9 L (1.0-2.8) Ethyl Alcohol ( - 10) mg/dL SARS-CoV-2 (PCR) (Negative) Blood Type O Positive Antibody Screen Negative 10/08/20 10/08/20 Range/Units 15:58 18:22 WBC (4.5-11.0) X10^3/uL RBC (4.0-5.2) X10^6/uL Hgb (12.0-16.0) g/dL Hct (36-46) % MCV (80-100) fL MCH (26-34) PG MCHC (30-36) % RDW (11.6-14.8) % Plt Count (150-400) X10^3/uL Neut % (Auto) Lymph % (Auto) [place] % (Auto) Eos % (Auto) Baso % (Auto) Lymph # (Auto) [place] # (Auto) Baso # (Auto) Total Counted Seg Neutrophils % (38-70) % Band Neutrophils % (3-7) % Lymphocytes % (Manual) (25-45) % Monocytes % (Manual) (2-11) % Eosinophils % (Manual) (2-4) % Basophils % (Manual) (0-1) % Neutrophils # (Manual) (9562-8637) /uL RBC Morphology PT (10.1-12.7) SECONDS INR (0.9-1.3) APTT (26.4-36.2) SECONDS Sodium (137-145) mmol/L Potassium (3.4-5.1) mmol/L Chloride (98-107) mmol/L Carbon Dioxide (22-32) mmol/L BUN (7-17) mg/dL Creatinine (0.52-1.04) mg/dL Estimated GFR (>60) mL/min BUN/Creatinine Ratio (6-22) Glucose (70-100) mg/dL Lactate 1.5 (0.7-2.1) mmol/L Calcium (8.4-10.2) mg/dL Total Bilirubin (0.2-1.3) mg/dL AST (14-36) IU/L ALT (<35) IU/L Alkaline Phosphatase (38-126) U/L Total Protein (6.3-8.2) g/dL Albumin (3.5-5.0) g/dL Globulin (1.7-4.1) g/dL Albumin/Globulin Ratio (1.0-2.8) Ethyl Alcohol 348 H ( - 10) mg/dL SARS-CoV-2 (PCR) (Negative) Blood Type Antibody Screen MDM Narrative Medical decision making narrative: Dr grande: Received turned over. Reviewed patient's history and physical. Awaiting call back from [facility] hospitalist for transfer secondary to GI bleeding and alcohol intoxication. Did discuss the case with the hospitalist who states they have seen the patient in the past have records on her. He stated that she does have a history of esophageal varices however her presentation today is more consistent with a lower GI bleed. Patient's blood pressures been stable. Will transfer for fu rther evaluation and treatment. Patient is stable for transfer. Discharge Plan Departure Patient Disposition: [facility] Clinical Impression: Lower gastrointestinal hemorrhage, Alcohol intoxication Prescriptions: No Action amlodipine [Norvasc] 5 MG tablet 5 mg PO DAILY Qty: 0 RF: 0 omeprazole 20 MG capsule,delayed release(DR/EC) 20 mg PO DAILY Qty: 0 RF: 0 hydrochlorothiazide 25 mg PO DAILY RF: 0 lorazepam 0.5 mg tablet 0.5 mg PO DAILY PRN (Reason: Anxiety) RF: 0 potassium chloride 10 mEq tablet extended release 10 meq PO DAILY RF: 0 Referrals: Felipe Macias [Primary Care Provider] - <Monik Cross DO - Last Filed: 10/09/20 07:37> Cosign ED Attending Cossofiaature Attestation: I was immediately available in the department for consultation. Documentation has been reviewed. I agree with assessment and plan.
[2020-10-08 16:14] LABS: Add Manual Diff / Slide Review YES; Hematocrit 30.5 % (36-46); Hemoglobin 10.3 g/dL (12.0-16.0); Mean Corpuscular HGB Conc 33.8 % (30-36); Mean Corpuscular Hemoglobin 34.7 PG (26-34); Mean Corpuscular Volume 102.7 fL (80-100); Platelet Count 109 X10^3/uL (150-400); Red Blood Cell Count 2.97 X10^6/uL (4.0-5.2); Red Cell Distribution Width 16.1 % (11.6-14.8); White Blood Cell Count 5.1 X10^3/uL (4.5-11.0)
[2020-10-08 16:19] LABS: INR 1.5 (0.9-1.3); Prothrombin Time 17.2 SECONDS (10.1-12.7)
[2020-10-08 16:22] LABS: PTT Partial Thromboplastin Tim 45 SECONDS (26.4-36.2)
[2020-10-08 16:24] LABS: Alanine Aminotransferase 48 IU/L (<35); Albumin 3.7 g/dL (3.5-5.0); Albumin Globulin Ratio 0.9 (1.0-2.8); Alkaline Phosphatase 200 U/L (38-126); Aspartate Aminotransferase 99 IU/L (14-36); BUN Creatinine Ratio 19.4 (6-22); Bilirubin Total 5.7 mg/dL (0.2-1.3); Blood Urea Nitrogen 6 mg/dL (7-17); Calcium 8.6 mg/dL (8.4-10.2); Carbon Dioxide 31 mmol/L (22-32); Chloride 106 mmol/L (98-107); Estimated Glomerular Filt Rate > 60.0 mL/min (>60); Globulin 4.3 g/dL (1.7-4.1); Glucose 120 mg/dL (70-100); HEMOLYSIS 16 (0-50); Potassium 4.4 mmol/L (3.4-5.1); Sodium 143 mmol/L (137-145)
[2020-10-08 16:25] LABS: Lactate (Lactic Acid) 2.8 mmol/L (0.7-2.1)
[2020-10-08] MEDS: LORazepam 0.5 MG TABLET PO (16:40)
[2020-10-08 16:42] LABS: Ethanol (ETOH) 348 mg/dL; Neutrophils Absolute Manual 3927 /uL (3000-5900); RBC Morphology Normal Morphology; Total Cells Counted 100
[2020-10-08 16:46] LABS: COVID19 -Nasal RAPID Negative (Negative)
[2020-10-08 18:06] LABS: Reflexed Lactate in 2 Hours Y
[2020-10-08] MEDS: PANTOPRAZOLE 40 MG VIAL IV (18:22)
[2020-10-08] MEDS: SODIUM CHLORIDE 0.9% 1,000 ML 150 ML IV (18:22)
[2020-10-08 18:46] LABS: Lactate 2HR (Lactic Acid Rflx) 1.5 mmol/L (0.7-2.1)
[2020-10-08] MEDS: LORazepam 2 MG/ML INJ 1 MG IV (20:41)
== END 2020-10-08 20:58 | disposition short-term general hospital (02) ==
PROVIDERS: Emergency Medicine; Nurse Practitioner Family; Emergency Provider Emergency Medicine; PCP General Practice
DX: K92.2 Gastrointestinal hemorrhage, unspecified (principal); F10.229 Alcohol dependence with intoxication, unspecified; Y90.8 Blood alcohol level of 240 mg/100 ml or more; I10 Essential (primary) hypertension; Z20.822 Contact with and (suspected) exposure to COVID-19
CPT/HCPCS: 36415; 80053; 80320; 83605; 85007; 85025; 85610; 85730; 86850; 86900; 86901; 87635; 93005; 93010; 99282; C9803; C9113; J2060